=== PATIENT | female | born 1955 | race Caucasian/White ===

== ENCOUNTER → 2018-04-24 | Outpatient (CLI) | payer MEDICARE, OTHER ==
[~2018-04-24] VITALS: Ht 170.2 cm; Wt 72.1 kg
[~2018-04-24] MED LIST: DICY10CA12 PO; MAGN500C15 PO; SUCR1TAB36 PO
== END ==
LOC: PREOP 05:33
PROVIDERS: ATTEND Specialist
DX: Z01.818 Encounter for other preprocedural examination (principal); H25.11 Age-related nuclear cataract, right eye

== ENCOUNTER 2018-04-26 09:55 | Day surgery (SDC) | payer MEDICARE, OTHER ==
[~2018-04-26] VITALS: Ht 170.2 cm; Wt 72.1 kg
[2018-04-26] MEDS ORDERED: VANCOMYCIN/BSS (COMPOUNDED) 10 MG/ML SYR OP ONE (10:00)
[2018-04-26] MEDS ORDERED: POVIDONE (BETADINE) OPHTH SOLN 5% 30 ML OP ONE (10:00)
[2018-04-26] MEDS ORDERED: EPINEPHrine INJECTION 1 MG/ML AMP INJ ONE ×2 (10:00→10:15)
[2018-04-26] MEDS ORDERED: LIDOCAINE PF 1% 2 ML AMP IR PRN (10:00)
[2018-04-26] MEDS ORDERED: TIMOLOL MALEATE 0.5% 5 ML (TIMOPTIC) BTL OU PRN (10:00)
[2018-04-26] MEDS: TETRACAINE 0.5% OPHTH SOLN 4 ML BTL (SINGLE DOSE ONLY) OU PRN ×4 (10:29→10:51)
[2018-04-26 10:36] VITALS: BP 148/86
[2018-04-26] MEDS: PHENYLEPHRINE 10% OPHTH (NEO-SYN) 5 ML BTL OU SCH ×3 (10:40→10:51)
[2018-04-26] MEDS: CYCLOPENTOLATE 1% (CYCLOGYL) 2 ML DROPS OP SCH ×3 (10:40→10:51)
[2018-04-26] MEDS ORDERED: MIDAZOLAM 2 MG/2 ML (VERSED) VIAL ONE (11:01)
--- NOTE | 2018-04-26 11:21 | Ophthalmologist Pre-Op Note ---
Pre-Operative Progress Note H&P Reviewed The H&P was reviewed, patient examined and no changes noted. Date H&P Reviewed: Apr 26, 2018 Time H&P Reviewed: 11:21 Pre-Op Dx Cataract, Right Eye THOMAS QUINTANILLA MD Apr 26, 2018 11:21
--- NOTE | 2018-04-26 11:45 | Ophthalmology Operative Report ---
Cataract removal/placement IOL PREOPERATIVE DIAGNOSIS: Cataract Right Eye POSTOPERATIVE DIAGNOSIS: Cataract Right Eye PROCEDURE: Cataract removal and placement of posterior chamber implant, right eye SURGEON: Moreno Quintanilla ANESTHESIA: Topical with sedation COMPLICATIONS: None ESTIMATED BLOOD LOSS: Minimal DESCRIPTION OF PROCEDURE: After proper informed consent was obtained, the patient, a 63 female, was taken to the Operating Room and the right eye was anesthetized with tetracaine. The right eye was then prepped and draped in the usual manner. A wire lid speculum was placed. A paracentesis was made at the left hand position. Preservative free lidocaine was injected into the anterior chamber followed by viscoelastic. A clear corneal incision was made in the temporal position. A capsulorrhexis was preformed and the central nuclear and cortical material were removed. The posterior capsule was polished and Benedict 18.0 SN6CWS IOL was placed into the capsular bag. The residual viscoelastic was aspirated and balanced saline solution was injected into the anterior chamber. Vancomycin was injected into the anterior chamber. The wound was checked and found to be water tight. The patient tolerated the procedure well without complications. MORENO QUINTANILLA MD Apr 26, 2018 11:45
[2018-04-26 11:50] VITALS: BP 121/73
--- NOTE | 2018-04-26 12:56 | Anesthesia-General Post-Op ---
MAC Patient Condition Mental Status/LOC: Same as Preop Cardiovascular: Satisfactory Nausea/Vomiting: Absent Respiratory: Satisfactory Pain: Controlled Complications: Absent Post Op Complications Complications None Follow Up Care/Instructions Patient Instructions None needed. Anesthesiology Discharge Order Discharge Order Patient is doing well, no complaints, stable vital signs, no apparent adverse anesthesia problems. No complications reported per nursing. KAYLI MUNGUIA CRNA Apr 26, 2018 12:56
== END 2018-04-26 11:50 | disposition home or self-care (01) ==
LOC: SDC 09:55
PROVIDERS: ATTEND Specialist
DX: H26.9 Unspecified cataract (principal)

== ENCOUNTER 2019-05-21 19:26 | Emergency (ER) | payer MEDICARE, OTHER ==
[~2019-05-21] VITALS: Ht 170.2 cm; Wt 73.9 kg
[2019-05-21] MEDS ORDERED: fentaNYL INJECTION 100 MCG/2 ML AMP IVP STA (19:40)
[2019-05-21] MEDS ORDERED: NS IV 1000 ML 1,000 ML IV STA ×3 (19:40→22:57)
[2019-05-21 19:50] LABS: EOSINOPHILS % (AUTO) 0 % (0-10); HEMATOCRIT 33 % (35-52); HEMOGLOBIN 10.1 G/DL (11.5-16.0); LYMPHOCYTES % (AUTO) 12 % (12-44); MEAN CORPUSCULAR HEMOGLOBIN 25 PG (25-34); MEAN CORPUSCULAR HGB CONC 31 G/DL (32-36); MEAN CORPUSCULAR VOLUME 81 FL (80-99); MEAN PLATELET VOLUME 9.7 FL (7.4-10.4); MONOCYTES % (AUTO) 1 % (0-12); NEUTROPHILS % (AUTO) 87 % (42-75); PLATELET COUNT 399 10^3/uL (130-400); RED CELL DISTRIBUTION WIDTH 16.7 % (10.0-14.5); WHITE BLOOD COUNT 11.4 10^3/uL (4.3-11.0)
[2019-05-21 19:51] LABS: BASOPHILS % (AUTO) 0 % (0-10); LYMPHOCYTES # (AUTO) 1.4 X 10^3 (1.0-4.0); MONOCYTES # (AUTO) 0.1 X 10^3 (0.0-1.0); NEUTROPHILS # (AUTO) 9.9 X 10^3 (1.8-7.8)
[2019-05-21] MEDS ORDERED: HYDROmorphone 2 MG/ML VIAL (DILAUDID) IV STA (19:55)
[2019-05-21] MEDS ORDERED: ONDANSETRON 4 MG/2 ML (SDV) Z0FRAN IVP STA (19:55)
--- NOTE | 2019-05-21 20:00 | ED GI ---
General Chief Complaint: Abdominal/GI Problems Stated Complaint: VOMTITING Nursing Triage Note: pt with egd yesterday at [facility], states other than throat being sore this morning she felt fine and went to work, pt states severe abd pain and vomting started 30 minutes ago Sepsis Screen: No Definite Risk Source of Information: Patient, EMS History of Present Illness Date Seen by Provider: May 21, 2019 Time Seen by Provider: 19:41 Initial Comments 64-year-old female presenting with complaints of epigastric and abdominal pain. She has pain going up into her chest and back. She had an EGD and balloon dilation scope done through [facility] on Sunday, May 20. She says that they were concerned about a possible mass in her small intestine but felt that it was rather just scar tissue. They did a double balloon dilation of her small intestine. She was just having some soreness in her throat but throughout the day into this evening she had progressing pain. Suddenly this evening she started having sharp pains with nausea and vomiting. She has more severe pain with movement and palpation. She denies any fever but has had some chills. She is still passing gas. Movement causes increased pain. She has decreased urination as well. Allergies and Home Medications Allergies Coded Allergies: prednisone (Verified Allergy, Severe, BREATHING DIFF, 05/09/18) Sulfa (Sulfonamide Antibiotics) (Verified Allergy, Mild, RASH, 05/09/18) metoclopramide (Verified Allergy, Mild, RASH, 05/09/18) NSAIDS (Non-Steroidal Anti-Inflamma (Verified Allergy, Unknown, 05/21/19) levofloxacin (Verified Allergy, Unknown, 05/21/19) Home Medications Cephalexin 500 Mg Tablet, 500 MG PO QID Prescribed by: PAULA AGUILARRT on 05/21/192328 Dicyclomine HCl 10 Mg Capsule, 10 MG PO PRN, (Reported) Hydrocodone Bit/Acetaminophen 1 Tab Tab, 1 EACH PO Q4-6HR PRN for PAIN-MODERATE Prescribed by: PAULA AGUILARRT on 05/21/192328 Magnesium Oxide 500 Mg Capsule, 1,500 MG PO HS, (Reported) Ondansetron 4 Mg Tab.rapdis, 4 MG PO Q6H PRN for NAUSEA/VOMITING Prescribed by: PAULA OHYART on 9/4/19 2329 Sucralfate 1 Gm Tablet, 1 GM PO PRN, (Reported) Patient Home Medication List Home Medication List Reviewed: Yes Review of Systems Review of Systems Constitutional: No chills, No fever EENTM: No Symptoms Reported Respiratory: No Symptoms Reported Cardiovascular: No Symptoms Reported Gastrointestinal: Abdomen Distended, Abdominal Pain, Nausea, Vomiting Genitourinary: Other (decreased output) Musculoskeletal: other (abdominal pain radiates to back) Skin: no symptoms reported Psychiatric/Neurological: Anxiety Past Ftdytnv-Qzeiml-Ddsrap Hx Past Med/Social Hx: Reviewed Nursing Past Med/Soc Hx Patient Social History Recent Foreign Travel: No Contact w/Someone Who Travel: No Recent Infectious Disease Expo: No Physical Abuse: No Sexual Abuse: No Mistreated: No Fear: No Physical Exam Vital Signs Vital Signs - First Documented 05/21/19 05/21/19 19:34 23:42 Temp 96.9 Pulse 66 Resp 20 B/P (MAP) 117/66 (83) Pulse Ox 98 O2 Delivery Room Air Capillary Refill : Less Than 3 Seconds Height/Weight/BMI Height: 5'7.00" Weight: 163lbs. 0.0oz. 73.165898bz; BMI Method:Actual General Appearance: severe distress HEENT: PERRL/EOMI, other (dry mucous membranes) Neck: non-tender, full range of motion, supple, normal inspection Respiratory: chest non-tender, lungs clear, normal breath sounds Cardiovascular: normal peripheral pulses, regular rate, rhythm, no edema Gastrointestinal: soft, no pulsatile mass, abnormal bowel sounds (hypoactive), guarding, rebound, tenderness (diffusely tender but worse in upper abdomen and epigastric area) Rectal: deferred Extremities: normal range of motion, non-tender, normal capillary refill Neurologic/Psychiatric: alert, oriented x 3, other (anxious) Skin: normal color, warm/dry Focused Exam Lactate Level 05/21/19 22:00: Lactic Acid Level 1.48 Lactic Acid Level Laboratory Tests Test 05/21/19 22:00 Lactic Acid Level 1.48 MMOL/L (0.50-2.00) Progress/Results/Core Measures Results/Orders Lab Results Laboratory Tests Test 05/21/19 19:40 05/21/19 21:25 05/21/19 22:00 Range/Units White Blood Count 11.4 H 4.3-11.0 10^3/uL Red Blood Count 4.03 L 4.35-5.85 10^6/uL Hemoglobin 10.1 L 11.5-16.0 G/DL Hematocrit 33 L 35-52 % Mean Corpuscular Volume 81 80-99 FL Mean Corpuscular Hemoglobin 25 25-34 PG Mean Corpuscular Hemoglobin Concent 31 L 32-36 G/DL Red Cell Distribution Width 16.7 H 10.0-14.5 % Platelet Count 399 130-400 10^3/uL Mean Platelet Volume 9.7 7.4-10.4 FL Neutrophils (%) (Auto) 87 H 42-75 % Lymphocytes (%) (Auto) 12 12-44 % Monocytes (%) (Auto) 1 0-12 % Eosinophils (%) (Auto) 0 0-10 % Basophils (%) (Auto) 0 0-10 % Neutrophils # (Auto) 9.9 H 1.8-7.8 X 10^3 Lymphocytes # (Auto) 1.4 1.0-4.0 X 10^3 Monocytes # (Auto) 0.1 0.0-1.0 X 10^3 Eosinophils # (Auto) 0.0 0.0-0.3 10^3/uL Basophils # (Auto) 0.0 0.0-0.1 10^3/uL Neutrophils % (Manual) 80 % Lymphocytes % (Manual) 9 % Monocytes % (Manual) 1 % Band Neutrophils 10 % Hypochromasia 2+ Sodium Level 140 135-145 MMOL/L Potassium Level 3.3 L 3.6-5.0 MMOL/L Chloride Level 101 98-107 MMOL/L Carbon Dioxide Level 24 21-32 MMOL/L Anion Gap 15 H 5-14 MMOL/L Blood Urea Nitrogen 20 H 7-18 MG/DL Creatinine 0.97 0.60-1.30 MG/DL Estimat Glomerular Filtration Rate 57 BUN/Creatinine Ratio 21 Glucose Level 161 H 70-105 MG/DL Calcium Level 8.9 8.5-10.1 MG/DL Corrected Calcium 8.9 8.5-10.1 MG/DL Magnesium Level 1.9 1.6-2.4 MG/DL Total Bilirubin 0.3 0.1-1.0 MG/DL Aspartate Amino Transf (AST/SGOT) 40 H 5-34 U/L Alanine Aminotransferase (ALT/SGPT) 21 0-55 U/L Alkaline Phosphatase 84 40-136 U/L Total Protein 7.0 6.4-8.2 GM/DL Albumin 4.0 3.2-4.5 GM/DL Lipase 30 8-78 U/L Urine Color PALE YELLOW Urine Clarity CLEAR Urine pH 5.5 5-9 Urine Specific [place] <=1.005 1.016-1.022 Urine Protein NEGATIVE NEGATIVE Urine Glucose (UA) NEGATIVE NEGATIVE Urine Ketones NEGATIVE NEGATIVE Urine Nitrite NEGATIVE NEGATIVE Urine Bilirubin NEGATIVE NEGATIVE Urine Urobilinogen 0.2 NORMAL MG/DL Urine Leukocyte Esterase 1+ H NEGATIVE Urine RBC (Auto) NEGATIVE NEGATIVE Urine RBC NONE /HPF Urine WBC 25-50 H /HPF Urine Squamous Epithelial Cells 5-10 /HPF Urine Crystals NONE /LPF Urine Bacteria TRACE /HPF Urine Casts NONE /LPF Urine Mucus NEGATIVE /LPF Urine Culture Indicated YES Lactic Acid Level 1.48 0.50-2.00 MMOL/L My Orders Orders - PAULA DORAN MD Comprehensive Metabolic Panel (05/21/19 19:35) Lipase (05/21/19 19:35) Ua Culture If Indicated (05/21/19 19:35) Ed Iv/Invasive Line Start (05/21/19 19:35) Cbc With Automated Diff (05/21/19 19:35) Fentanyl Injection (Sublimaze Injection (05/21/19 19:40) Ns Iv 1000 Ml (Sodium Chloride 0.9%) (05/21/19 19:40) Manual Differential (05/21/19 19:40) Hydromorphone Injection (Dilaudid Inject (05/21/19 19:55) Ondansetron Injection (Zofran Injectio (05/21/19 19:55) Ct Chest/Abdomen/Pelvis W (05/21/19 19:56) Iohexol Injection (Omnipaque 350 Mg/Ml 1 (05/21/19 20:15) Received Contrast (Hold Metformin- Contr (05/21/19 20:15) Ns (Ivpb) (Sodium Chloride 0.9% Ivpb Bag (05/21/19 20:15) Sodium Chloride Flush (Catheter Flush Sy (05/21/19 20:15) Magnesium (05/21/19 20:38) Blood Culture (05/21/19 21:32) Lactic Acid Analyzer (05/21/19 21:32) Acetaminophen Tablet (Tylenol Tablet) (05/21/19 21:33) Ns Iv 1000 Ml (Sodium Chloride 0.9%) (05/21/19 21:52) Urine Culture (05/21/19 21:25) Ceftriaxone For Iv Use (Rocephin For I (05/21/19 22:57) Ns Iv 1000 Ml (Sodium Chloride 0.9%) (05/21/19 22:57) Rx-Ondansetron Po (Rx-Zofran Po) (05/21/19 23:00) Rx-Hydrocodone/Apap 5-325 Mg (Rx-Vicodin (05/21/19 23:00) Medications Given in ED Current Medications Medications Dose Ordered Sig/Eloy Route Start Time Stop Time Status Last Admin Dose Admin Iohexol 100 ml ONCE ONCE IV 05/21/19 20:15 05/21/19 20:16 DC 05/21/19 20:26 100 ML Sodium Chloride 10 ml NEEDED PRN IV 05/21/19 20:15 05/21/19 23:42 DC 05/21/19 20:26 10 ML Sodium Chloride 100 ml ONCE ONCE IV 05/21/19 20:15 05/21/19 20:16 DC 05/21/19 20:26 40 ML Vital Signs/I&O 05/21/19 05/21/19 05/21/19 19:34 21:25 23:42 Temp 96.9 101.9 99.8 Pulse 66 117 Resp 20 15 B/P (MAP) 117/66 (83) 109/58 (75) Pulse Ox 98 91 O2 Delivery Room Air 05/22/19 00:00 Intake Total 3000 ml Balance 3000 ml Blood Pressure Mean: 83 Progress Progress Note #1: Progress Note give fentanyl for pain, ivf for hydration, check labs so can see what her Cr and GFR are so can obtain CT scan of chest/abdomen/pelvis to see if she has perforation or what might be causing her severe pain and n/v. Progress Note #2: Progress Note Not having much improvement with fentanyl so will try Dilaudid 0.5 mg IV and repeat Zofran to see if that helps keep her from having nausea from the narcotics while pending imaging and labs. Progress Note #3: Progress Note Labs show anemia with Hgb at 10.1, mild elevation of WBC at 11.4. Her Chemistry does not show signs of pancreatitis and her electrolytes appear stable with no acute significant abnormalities on renal or hepatic testing. Awaiting CT scan imaging. Progress Note #4: Progress Note Per radiology her CT scan does not show perforation but she does have signs of possible ileus. She is still having severe pain. Will check with [facility] about her symptoms Progress Note #5: Progress Note Discussed with the on-call GI doctor Dr. Lomax at [facility]. He felt the patient could be followed as outpatient since her scan was read out as negative by radiologist and she has improved pain. As long as the pt was comfortable with that and taking po. She could be treated for her UTI and have her take oral fluids. Have her follow-up through primary liquid diet. Off work until Sunday.. Hydrocodone for severe pain. Counseled to use this sparingly so that she doesn't perpetuate the ileus. Patient chose to try things at home. She wanted to stay and be admitted also have advised her that this would likely be best since she was tachycardic. She was given 1 more liter fluids and at first dose of antibiotic She was counseled on follow-up and return precautions. Diagnostic Imaging Diagonstic Imaging: CT Plain Films/CT/US/NM/MRI: chest, abdomen, pelvis Comments NAME: [facility]IN [facility] REC#: [id number] PT STATUS: REG ER : 1955 PHYSICIAN: PAULA DORAN MD ADMIT DATE: 05/21/19/ER FS Draft Date of Exam:05/21/19 CT CHEST/ABDOMEN/PELVIS W PROCEDURE: CT chest, abdomen and pelvis with contrast. TECHNIQUE: Multiple contiguous axial images were obtained through the chest, abdomen, and pelvis after the administration of intravenous contrast. Auto Exposure Controls were utilized during the CT exam to meet ALARA standards for radiation dose reduction. INDICATION: Severe abdominal pain and vomiting. Recent EGD. CT chest: The lungs are clear. There is no effusion or pneumothorax. There is no pneumomediastinum. There is no mediastinal mass or hemorrhage. There is no acute bony abnormality. CT abdomen/pelvis: The liver is normal. The gallbladder is not seen and assumed is absent. There is no abnormality of the pancreas seen. The spleen and adrenals are normal. The kidneys, ureters and bladder are normal. There are multiple air and fluid-filled loops of bowel which are upper normal. This may be related to mild ileus. No obstruction is evident at this time. There is air and fecal material in a nondilated colon. There is no free intraperitoneal air or fluid. Sutures are seen at the GE junction. No intramural or free intraperitoneal air is seen at this site or elsewhere. IMPRESSION: Probable ileus with no other acute abnormality seen. Dictated on workstation # [id number] Dict: 05/21/192049 Trans: 05/21/192054 PJE [id number] Interpreted by: MARIAM GREENE MD Electronically signed by: Departure Impression Primary Impression: Ileus following gastrointestinal surgery Additional Impressions: Cystitis without hematuria Bilious vomiting with nausea Diffuse abdominal pain Disposition: HOME, SELF-CARE Condition: Stable Departure-Patient Inst. Decision time for Depature: 23:25 Referrals: NO,LOCAL PHYSICIAN (PCP) Primary Care Physician Patient Instructions: Acute Abdomen (Belly Pain), Adult (DC), Nausea and Vomiting, Adult (DC), Postoperative Ileus (DC), Urinary Tract Infection, Adult (DC) Add. Discharge Instructions: Follow-up clear liquid diet for the next 24-36 hours. For severe pain U could try taking the hydrocodone. Use the dissolving Zofran tablets to help with nausea. Check back with your GI doctor from [place] tomorrow about urinary symptoms. If you have not heard from them you could give them a call tomorrow. Make sure to take the antibiotics until gone All discharge instructions reviewed with patient and/or family. Voiced understanding. Scripts Hydrocodone Bit/Acetaminophen (Hydrocodone/Acetaminophen 5/325mg Tablet) 1 Tab Tab 1 EACH PO Q4-6HR PRN for PAIN-MODERATE MDD 10 for 3 Days, #16 TAB 0 Refills Prov: PAULA DORAN MD 05/21/19 Ondansetron (Ondansetron Odt) 4 Mg Tab.rapdis 4 MG PO Q6H PRN for NAUSEA/VOMITING for 2 Days, #8 TAB 0 Refills Prov: PAULA DORAN MD 05/21/19 Cephalexin (Cephalexin) 500 Mg Tablet 500 MG PO QID for uti for 7 Days, #28 TAB 0 Refills Prov: ENYART,PAULA E MD 05/21/19 Work/School Note: Work Release Form Date Seen in the Emergency Department: May 21, 2019 Return to Work: May 26, 2019 Restrictions: Return-No Vomiting(24hrs) PAULA DORAN MD May 21, 2019 20:00
[2019-05-21 20:10] LABS: CREATININE SERUM 0.97 MG/DL (0.60-1.30); POTASSIUM 3.3 MMOL/L (3.6-5.0)
[2019-05-21 20:11] LABS: BILIRUBIN,TOTAL 0.3 MG/DL (0.1-1.0); CALCIUM 8.9 MG/DL (8.5-10.1)
[2019-05-21] MEDS ORDERED: NS 100 ML (IVPB) BAG IV ONE (20:15)
[2019-05-21] MEDS ORDERED: IOHEXOL 350 MG/ML 100 ML (OMNIPAQUE 350) VIAL IV ONE (20:15)
[2019-05-21] MEDS ORDERED: CATHETER FLUSH 10 ML SYR IV PRN (20:15)
[2019-05-21] MEDS ORDERED: HOLD METFORMIN - RECEIVED CONTRAST 20 ML VIAL IV SCH (20:15)
[2019-05-21 20:19] LABS: BAND NEUTROPHILS 10 %; HYPOCHROMASIA 2+; LYMPHOCYTES % (MANUAL) 9 %; MONOCYTES % (MANUAL) 1 %; NEUTROPHILS % (MANUAL) 80 %
--- NOTE | 2019-05-21 20:56 | Diagnostic Imaging Report ---
PROCEDURE: CT chest, abdomen and pelvis with contrast. TECHNIQUE: Multiple contiguous axial images were obtained through the chest, abdomen, and pelvis after the administration of intravenous contrast. Auto Exposure Controls were utilized during the CT exam to meet ALARA standards for radiation dose reduction. INDICATION: Severe abdominal pain and vomiting. Recent EGD. CT chest: The lungs are clear. There is no effusion or pneumothorax. There is no pneumomediastinum. There is no mediastinal mass or hemorrhage. There is no acute bony abnormality. CT abdomen/pelvis: The liver is normal. The gallbladder is not seen and assumed is absent. There is no abnormality of the pancreas seen. The spleen and adrenals are normal. The kidneys, ureters and bladder are normal. There are multiple air and fluid-filled loops of bowel which are upper normal. This may be related to mild ileus. No obstruction is evident at this time. There is air and fecal material in a nondilated colon. There is no free intraperitoneal air or fluid. Sutures are seen at the GE junction. No intramural or free intraperitoneal air is seen at this site or elsewhere. IMPRESSION: Probable ileus with no other acute abnormality seen. Dictated by: Dictated on workstation # [id number]
[2019-05-21] MEDS ORDERED: ACETAMINOPHEN 500 MG TAB (TYLENOL) PO STA (21:33)
[2019-05-21 22:05] LABS: BILIRUBIN,URINE NEGATIVE (NEGATIVE); CLARITY,URINE CLEAR; COLOR,URINE PALE YELLOW; GLUCOSE, URINE (UA) NEGATIVE (NEGATIVE); KETONES,URINE NEGATIVE (NEGATIVE); NITRITE,URINE NEGATIVE (NEGATIVE); PH,URINE 5.5 (5-9); PROTEIN,URINE NEGATIVE (NEGATIVE); UROBILINOGEN,URINE 0.2 MG/DL (NORMAL)
[2019-05-21 22:06] LABS: BACTERIA,URINE TRACE /HPF; LEUKOCYTE ESTERASE ,URINE 1+ (NEGATIVE); WBC,URINE 25-50 /HPF
[2019-05-21] MEDS ORDERED: cefTRIAXone FOR IV USE 1,000 MG in WATER (STERILE) FOR INJECTION 10 ML IV STA (22:57)
[2019-05-21] MEDS ORDERED: RX-ONDANSETRON 4 MG ODT (ZOFRAN) PPK #4 PO PRN (23:00)
[2019-05-21] MEDS ORDERED: RX-HYDROCODONE/APAP 5/325 MG #4 TAB PK PO PRN (23:00)
[2019-05-21] MEDS ORDERED: CEPH500T PO (23:29)
[2019-05-21] MEDS ORDERED: ACHD5005 PO (23:29)
[2019-05-21] MEDS ORDERED: ONDA4TAB11 PO (23:29)
[2019-05-21 23:42] VITALS: BP 109/58
== END 2019-05-21 23:41 | disposition home or self-care (01) ==
LOC: EDUNIT# 19:26 → ER FS 19:28
DX: K91.89 Other postprocedural complications and disorders of digestive system (principal); N30.90 Cystitis, unspecified without hematuria; R11.14 Bilious vomiting; R11.0 Nausea; Z88.8 Allergy status to other drugs, medicaments and biological substances; Z88.2 Allergy status to sulfonamides; Z88.1 Allergy status to other antibiotic agents; Z88.6 Allergy status to analgesic agent
CPT/HCPCS: 36415; 71260; 74177; 80053; 81000; 83605; 83690; 83735; 85007; 85027; 87040; 87077; 87088; 96361; 96365; 96375

== ENCOUNTER 2019-06-26 10:05 | Emergency (ER) | payer MEDICARE, OTHER ==
[~2019-06-26] VITALS: Ht 170 cm; Wt 78.0 kg
[~2019-06-26 10:05] MED LIST changes: +ACHD5005 PO; +CEPH500T PO; +ONDA4TAB11 PO
--- NOTE | 2019-06-26 10:26 | ED Dyspnea ---
General Chief Complaint: Chest Pain Stated Complaint: SOB; DIZZINESS; CHEST PRESSURE Source of Information: Patient Exam Limitations: No Limitations History of Present Illness Date Seen by Provider: Jun 26, 2019 Time Seen by Provider: 10:15 Initial Comments The patient is a pleasant 64-year-old female who presents for evaluation of sh ortness of breath and chest discomfort. She states that her symptoms began yesterday evening. She states that she has had similar shortness of breath in the past which was caused by anemia. She does report some dark stools lately and states that she has a history of GI bleeding. She has not noticed any bright red blood per rectum. She does mention that she takes breathing treatments at home which were not helping and when asked why she is prescribed them she states because she had mold exposure in the past and denies COPD or asthma. She denies any history of cardiac problems. She is alert and oriented 4, calm, and appears to be in no distress. She reports some mild nausea but no vomiting, f/c, diaphoresis, abdominal or back pain, rectal pain, urinary complaints, palpitations, or syncope. She does report some fatigue. Timing/Duration: Other (yesterday evening) Severity: Moderate Prior Episodes/Possible Cause: Occasional Episodes (usually related to anemia) Modifying Factors: Improves With Activity, Improves With Rest (helps) Associated Symptoms: Chest Pain, Weakness Allergies and Home Medications Allergies Coded Allergies: prednisone (Verified Allergy, Severe, BREATHING DIFF, 05/09/18) Sulfa (Sulfonamide Antibiotics) (Verified Allergy, Mild, RASH, 05/09/18) metoclopramide (Verified Allergy, Mild, RASH, 05/09/18) NSAIDS (Non-Steroidal Anti-Inflamma (Verified Allergy, Unknown, 05/21/19) atorvastatin (Verified Allergy, Unknown, rash, 06/26/19) levofloxacin (Verified Allergy, Unknown, 05/21/19) morphine (Verified Allergy, Unknown, rash, swelling , 06/26/19) nitrofurantoin (Verified Allergy, Unknown, rash, 06/26/19) Home Medications Cephalexin 500 Mg Tablet, 500 MG PO QID Prescribed by: PAULA DORAN on 05/21/19 0876 Dicyclomine HCl 10 Mg Capsule, 10 MG PO PRN, (Reported) Hydrocodone Bit/Acetaminophen 1 Tab Tab, 1 EACH PO Q4-6HR PRN for PAIN-MODERATE Prescribed by: PAULA AGUILARRT on 05/21/192328 Magnesium Oxide 500 Mg Capsule, 1,500 MG PO HS, (Reported) Ondansetron 4 Mg Tab.rapdis, 4 MG PO Q6H PRN for NAUSEA/VOMITING Prescribed by: PAULA AGUILARRT on 05/21/192328 Sucralfate 1 Gm Tablet, 1 GM PO PRN, (Reported) Patient Home Medication List Home Medication List Reviewed: Yes Review of Systems Review of Systems Constitutional: no symptoms reported EENTM: no symptoms reported Respiratory: dyspnea on exertion, short of breath Cardiovascular: chest pain Gastrointestinal: other (dark stools) Genitourinary: no symptoms reported Musculoskeletal: no symptoms reported Skin: no symptoms reported Psychiatric/Neurological: No Symptoms Reported Endocrine: No Symptoms Reported Hematologic/Lymphatic: No Symptoms Reported All Other Systems Reviewed Negative Unless Noted: Yes Past Jcksmxq-Ceuldh-Zwrcdj Hx Past Med/Social Hx: Reviewed Nursing Past Med/Soc Hx Patient Social History 2nd Hand Smoke Exposure: No Recent Foreign Travel: No Recent Hopitalizations: No Seasonal Allergies Seasonal Allergies: No Past Medical History Surgeries: Yes Abdominal Respiratory: No Cardiac: No Neurological: No Genitourinary: No Gastrointestinal: Yes Gastroesophageal Reflux, Ulcer Musculoskeletal: No Endocrine: No HEENT: No Cancer: No Psychosocial: No Integumentary: No Blood Disorders: No Physical Exam Vital Signs Vital Signs - First Documented 06/26/19 10:25 Temp 37.0 Pulse 75 Resp 18 B/P (MAP) 161/75 (103) Pulse Ox 100 O2 Delivery Room Air Capillary Refill : Height, Weight, BMI Height: 5'7.00" Weight: 163lbs. 0.0oz. 73.134183xs; BMI Method:Actual General Appearance: No Apparent Distress, WD/WN HEENT: PERRL/EOMI, Pharynx Normal Neck: Full Range of Motion, Non Tender, Supple Respiratory: Chest Non Tender, Lungs Clear, Normal Breath Sounds, No Accessory Muscle Use, No Respiratory Distress Cardiovascular: Regular Rate, Rhythm, No Edema, No Murmur Gastrointestinal: Normal Bowel Sounds, No Pulsatile Mass, Non Tender, Soft Extremity: Normal Capillary Refill, Normal Inspection, Normal Range of Motion, Non Tender Neurologic/Psychiatric: Alert, Oriented x3, No Motor/Sensory Deficits, Normal Mood/Affect Skin: Normal Color, Warm/Dry Progress/Results/Core Measures Results/Orders Lab Results Laboratory Tests Test 06/26/19 10:20 Range/Units White Blood Count 12.3 H 4.3-11.0 10^3/uL Red Blood Count 4.47 4.35-5.85 10^6/uL Hemoglobin 11.1 L 11.5-16.0 G/DL Hematocrit 35 35-52 % Mean Corpuscular Volume 79 L 80-99 FL Mean Corpuscular Hemoglobin 25 25-34 PG Mean Corpuscular Hemoglobin Concent 32 32-36 G/DL Red Cell Distribution Width 17.2 H 10.0-14.5 % Platelet Count 407 H 130-400 10^3/uL Mean Platelet Volume 9.2 7.4-10.4 FL Neutrophils (%) (Auto) 67 42-75 % Lymphocytes (%) (Auto) 22 12-44 % Monocytes (%) (Auto) 7 0-12 % Eosinophils (%) (Auto) 2 0-10 % Basophils (%) (Auto) 1 0-10 % Neutrophils # (Auto) 8.2 H 1.8-7.8 X 10^3 Lymphocytes # (Auto) 2.7 1.0-4.0 X 10^3 Monocytes # (Auto) 0.9 0.0-1.0 X 10^3 Eosinophils # (Auto) 0.3 0.0-0.3 10^3/uL Basophils # (Auto) 0.1 0.0-0.1 10^3/uL Prothrombin Time 14.2 12.2-14.7 SEC INR Comment 1.1 0.8-1.4 Activated Partial Thromboplast Time 27 24-35 SEC D-Dimer 0.56 H 0.00-0.49 UG/ML Sodium Level 140 135-145 MMOL/L Potassium Level 3.6 3.6-5.0 MMOL/L Chloride Level 106 98-107 MMOL/L Carbon Dioxide Level 22 21-32 MMOL/L Anion Gap 12 5-14 MMOL/L Blood Urea Nitrogen 15 7-18 MG/DL Creatinine 0.83 0.60-1.30 MG/DL Estimat Glomerular Filtration Rate > 60 BUN/Creatinine Ratio 18 Glucose Level 101 70-105 MG/DL Calcium Level 8.8 8.5-10.1 MG/DL Corrected Calcium 9.0 8.5-10.1 MG/DL Magnesium Level 2.2 1.6-2.4 MG/DL Total Bilirubin 0.3 0.1-1.0 MG/DL Aspartate Amino Transf (AST/SGOT) 21 5-34 U/L Alanine Aminotransferase (ALT/SGPT) 13 0-55 U/L Alkaline Phosphatase 85 40-136 U/L Troponin I 0.30 <0.30 NG/ML Pro-B-Type Natriuretic Peptide 417.1 H <75.0 PG/ML Total Protein 6.8 6.4-8.2 GM/DL Albumin 3.8 3.2-4.5 GM/DL My Orders Orders - MARIAM SULLIVAN DO Cbc With Automated Diff (06/26/19 10:18) Magnesium (06/26/19 10:18) Chest 1 View Ap/Pa Only (06/26/19 10:18) Ekg Tracing (06/26/19 10:18) Comprehensive Metabolic Panel (06/26/19 10:18) Protime With Inr (06/26/19 10:18) Partial Thromboplastin Time (06/26/19 10:18) O2 (06/26/19 10:18) Monitor-Rhythm Ecg Trace Only (06/26/19 10:18) Ed Iv/Invasive Line Start (06/26/19 10:18) Troponin I Fs (06/26/19 10:18) Probnp Fs (06/26/19 10:18) Albuterol/Ipra Inhalation Soln (Duoneb I (06/26/19 11:45) Svn Small Volume Nebulizer (06/26/19 11:35) Methylprednisolone Sod Succ (Solu-Medrol (06/26/19 11:45) Ns Iv 1000 Ml (Sodium Chloride 0.9%) (06/26/19 11:45) Fibrin Degradation Products (06/26/19 12:28) Ct Angio Chest W (06/26/19 13:40) Iohexol Injection (Omnipaque 350 Mg/Ml 1 (06/26/19 13:45) Received Contrast (Hold Metformin- Contr (06/26/19 13:45) Sodium Chloride Flush (Catheter Flush Sy (06/26/19 13:45) Ns (Ivpb) (Sodium Chloride 0.9% Ivpb Bag (06/26/19 13:45) Medications Given in ED Current Medications Medications Dose Ordered Sig/Eloy Route Start Time Stop Time Status Last Admin Dose Admin Albuterol/ Ipratropium 3 ml ONCE ONCE INH 06/26/19 11:45 06/26/19 11:46 DC 06/26/19 11:51 3 ML Iohexol 125 ml ONCE ONCE IV 06/26/19 13:45 06/26/19 13:46 DC 06/26/19 14:03 125 ML Methylprednisolone Sodium Succinate 125 mg ONCE ONCE IVP 06/26/19 11:45 06/26/19 11:46 DC 06/26/19 11:51 125 MG Sodium Chloride 10 ml NEEDED PRN IV 06/26/19 13:45 06/26/19 14:03 10 ML Sodium Chloride 100 ml ONCE ONCE IV 06/26/19 13:45 06/26/19 13:46 DC 06/26/19 14:03 80 ML Vital Signs/I&O 06/26/19 10:25 Temp 37.0 Pulse 75 Resp 18 B/P (MAP) 161/75 (103) Pulse Ox 100 O2 Delivery Room Air Progress Progress Note : Progress Note @1135 - patient declines rectal examination. Her hemoglobin is higher than it was a month ago so a significant GI bleed is unlikely. She states that she has been having somewhat dark stools on and off over the last month but that they are getting better. She states that she was recently spraying paint on Sunday at her home without a mask and believes this could've triggered her shortness of breath. Patient will be given a DuoNeb and Solu-Medrol. She states that she has an anaphylactic reaction to prednisone but that she has tolerated Solu-Medrol several times in the past multiple times. @1238 - Pt continues to saturate 100% on room air. She continues to state that she is short of breath. A d-dimer has been ordered. She does not appear to be in any respiratory distress. @1432 - CT angiogram is unremarkable. The patient has no new complaints and is asking to go home. Workup today fails reveal any emergent pathology in the patient stable for discharge home at this time. EKG : Comment EKG@1011 - Normal sinus rhythm, rate of 71, normal axis, no acute ischemic findings noted, no STEMI, reviewed and interpreted by myself Diagnostic Imaging Comments [facility], [place] NAME: RAMIN [facility] REC#: [id number] PT STATUS: REG ER : 1955 PHYSICIAN: MARIAM SULLIVAN DO ADMIT DATE: 06/26/19/ER FS Draft Date of Exam:06/26/19 CT ANGIO CHEST W PROCEDURE: CT angiography of the chest with contrast. TECHNIQUE: Multiple contiguous axial images were obtained through the chest after uneventful bolus administration of intravenous contrast. 3D reconstructed CTA MIP acquisitions were also performed. Auto Exposure Controls were utilized during the CT exam to meet ALARA standards for radiation dose reduction. INDICATION: Cough and elevated D-dimer. Correlation is made with prior chest CT from 05/21/2019. Evaluation of the pulmonary arterial system is without thromboembolism. No filling defects are seen within central, lobar or segmental branches. Thoracic aorta is normal caliber. There is no dissection. No pericardial or pleural fluid is identified. Tiny subpleural nodule left upper lobe laterally, image 22 is stable. Additional tiny subpleural nodules right upper lobe are noted. No mass or infiltrate is seen. Upper abdomen demonstrates postsurgical changes to the stomach. IMPRESSION: No evidence of pulmonary embolism or thoracic aortic dissection. Dictated on workstation # [id number] Dict: 06/26/19 1415 Trans: 06/26/19 1420 [facility] [id number] Interpreted by: YORDAN PEREZ MD Electronically signed by: Departure Impression Primary Impression: Dyspnea Disposition: 01 HOME, SELF-CARE Condition: Stable Departure-Patient Inst. Referrals: VIRGILIO ALONZO MD (PCP) Primary Care Physician Patient Instructions: Pneumonitis, Shortness of Breath (Dyspnea) Add. Discharge Instructions: Take the medication as prescribed. Follow-up with your doctor in the next 1-2 days. Return to the emergency Department immediately for new or worsening symptoms. Scripts Benzonatate (TESSALON PERLES) 100 Mg Capsule 100 MG PO Q6H PRN for COUGH, #20 CAP Prov: MARIAM SULLIVAN DO 06/26/19 Acetaminophen with Codeine (Tylenol with Codeine #3 Tablet) 1 Each Tablet 1 EACH PO Q6H PRN for COUGH for 7 Days, #15 TAB Prov: MARIAM SULLIVAN DO 06/26/19 MARIAM SULLIVAN DO Jun 26, 2019 10:26
[2019-06-26 10:34] LABS: WHITE BLOOD COUNT 12.3 10^3/uL (4.3-11.0)
[2019-06-26 10:35] LABS: BASOPHILS # (AUTO) 0.1 10^3/uL (0.0-0.1); BASOPHILS % (AUTO) 1 % (0-10); EOSINOPHILS # (AUTO) 0.3 10^3/uL (0.0-0.3); EOSINOPHILS % (AUTO) 2 % (0-10); HEMATOCRIT 35 % (35-52); HEMOGLOBIN 11.1 G/DL (11.5-16.0); LYMPHOCYTES # (AUTO) 2.7 X 10^3 (1.0-4.0); LYMPHOCYTES % (AUTO) 22 % (12-44); MEAN CORPUSCULAR HEMOGLOBIN 25 PG (25-34); MEAN CORPUSCULAR HGB CONC 32 G/DL (32-36); MEAN CORPUSCULAR VOLUME 79 FL (80-99); MEAN PLATELET VOLUME 9.2 FL (7.4-10.4); MONOCYTES # (AUTO) 0.9 X 10^3 (0.0-1.0); MONOCYTES % (AUTO) 7 % (0-12); NEUTROPHILS # (AUTO) 8.2 X 10^3 (1.8-7.8); NEUTROPHILS % (AUTO) 67 % (42-75); PLATELET COUNT 407 10^3/uL (130-400); RED CELL DISTRIBUTION WIDTH 17.2 % (10.0-14.5)
[2019-06-26 10:43] LABS: INR 1.1 (0.8-1.4); PROTHROMBIN TIME PATIENT 14.2 SEC (12.2-14.7)
--- NOTE | 2019-06-26 11:02 | Diagnostic Imaging Report ---
INDICATION: Cough. FINDINGS: The heart size, mediastinal configuration, and pulmonary vascularity are within normal limits. There is no pleural effusion, pneumothorax, or pneumonia. The osseous structures are unremarkable. IMPRESSION: No acute cardiopulmonary abnormality. Dictated by: Dictated on workstation # [id number]
[2019-06-26 11:04] LABS: CARBON DIOXIDE 22 MMOL/L (21-32); CHLORIDE 106 MMOL/L (98-107); POTASSIUM 3.6 MMOL/L (3.6-5.0); SODIUM 140 MMOL/L (135-145)
[2019-06-26 11:05] LABS: ALANINE AMINOTRANSFERASE 13 U/L (0-55); ALBUMIN 3.8 GM/DL (3.2-4.5); ALKALINE PHOSPHATASE 85 U/L (40-136); BILIRUBIN,TOTAL 0.3 MG/DL (0.1-1.0); BUN/CREATININE RATIO 18; CALCIUM 8.8 MG/DL (8.5-10.1); CREATININE SERUM 0.83 MG/DL (0.60-1.30); GFR ESTIMATED > 60; GLUCOSE 101 MG/DL (70-105); MAGNESIUM 2.2 MG/DL (1.6-2.4); TOTAL PROTEIN 6.8 GM/DL (6.4-8.2)
[2019-06-26] MEDS ORDERED: RT-ALBUTEROL/IPRATROPIUM 3 ML (DUONEB) VIAL INH ONE (11:45)
[2019-06-26] MEDS ORDERED: NS IV 1000 ML 1,000 ML IV SCH (11:45)
[2019-06-26] MEDS ORDERED: methylPREDNISolone 125 MG (Solu-MEDROL) VIAL IVP ONE (11:45)
[2019-06-26] MEDS ORDERED: IOHEXOL 350 MG/ML 150 ML (OMNIPAQUE 350) VIAL IV ONE (13:45)
[2019-06-26] MEDS ORDERED: NS 100 ML (IVPB) BAG IV ONE (13:45)
[2019-06-26] MEDS ORDERED: CATHETER FLUSH 10 ML SYR IV PRN (13:45)
[2019-06-26] MEDS ORDERED: HOLD METFORMIN - RECEIVED CONTRAST 20 ML VIAL IV SCH (13:45)
--- NOTE | 2019-06-26 14:20 | Diagnostic Imaging Report ---
PROCEDURE: CT angiography of the chest with contrast. TECHNIQUE: Multiple contiguous axial images were obtained through the chest after uneventful bolus administration of intravenous contrast. 3D reconstructed CTA MIP acquisitions were also performed. Auto Exposure Controls were utilized during the CT exam to meet ALARA standards for radiation dose reduction. INDICATION: Cough and elevated D-dimer. Correlation is made with prior chest CT from 05/21/2019. Evaluation of the pulmonary arterial system is without thromboembolism. No filling defects are seen within central, lobar or segmental branches. Thoracic aorta is normal caliber. There is no dissection. No pericardial or pleural fluid is identified. Tiny subpleural nodule left upper lobe laterally, image 22 is stable. Additional tiny subpleural nodules right upper lobe are noted. No mass or infiltrate is seen. Upper abdomen demonstrates postsurgical changes to the stomach. IMPRESSION: No evidence of pulmonary embolism or thoracic aortic dissection. Dictated by: Dictated on workstation # [id number]
[2019-06-26] MEDS ORDERED: ACET-789 PO (14:32)
[2019-06-26] MEDS ORDERED: BENZ100C18 PO (14:32)
[2019-06-26 14:58] VITALS: BP 132/77
== END 2019-06-26 14:37 | disposition home or self-care (01) ==
LOC: EDUNIT# 10:05 → ER FS 10:07
DX: R06.00 Dyspnea, unspecified (principal); K21.9 Gastro-esophageal reflux disease without esophagitis; Z88.8 Allergy status to other drugs, medicaments and biological substances; Z88.2 Allergy status to sulfonamides; Z88.1 Allergy status to other antibiotic agents; Z88.5 Allergy status to narcotic agent; Z88.6 Allergy status to analgesic agent
CPT/HCPCS: 36415; 71045; 71275; 80053; 83735; 83880; 84484; 85025; 85379; 85610; 85730; 93005; 93041; 94640; 96374

== ENCOUNTER 2019-12-05 09:24 | Emergency (ER) | payer MEDICARE, OTHER ==
[~2019-12-05] VITALS: Ht 170 cm; Wt 72.7 kg
[~2019-12-05 09:24] MED LIST changes: +ACET-789 PO; +BENZ100C18 PO
--- NOTE | 2019-12-05 10:04 | NUR ---
PT STATES SHE FEELS SOA ESPECIALLY IF SHE LAYS DOWN.
[2019-12-05] MEDS ORDERED: ALBUTEROL (10:11)
[2019-12-05] MEDS ORDERED: CYCL5TAB (10:11)
[2019-12-05] MEDS ORDERED: PANT40TA2 PO (10:11)
[2019-12-05] MEDS ORDERED: BENTYL (10:11)
[2019-12-05 10:15] LABS: BASOPHILS # (AUTO) 0.1 10^3/uL (0.0-0.1); BASOPHILS % (AUTO) 1 % (0-10); EOSINOPHILS # (AUTO) 0.2 10^3/uL (0.0-0.3); EOSINOPHILS % (AUTO) 3 % (0-10); HEMATOCRIT 34 % (35-52); HEMOGLOBIN 10.6 G/DL (11.5-16.0); LYMPHOCYTES # (AUTO) 2.6 X 10^3 (1.0-4.0); LYMPHOCYTES % (AUTO) 37 % (12-44); MEAN CORPUSCULAR HEMOGLOBIN 25 PG (25-34); MEAN CORPUSCULAR HGB CONC 31 G/DL (32-36); MEAN CORPUSCULAR VOLUME 79 FL (80-99); MEAN PLATELET VOLUME 9.3 FL (7.4-10.4); MONOCYTES # (AUTO) 0.5 X 10^3 (0.0-1.0); MONOCYTES % (AUTO) 8 % (0-12); NEUTROPHILS # (AUTO) 3.6 X 10^3 (1.8-7.8); NEUTROPHILS % (AUTO) 51 % (42-75); PLATELET COUNT 417 10^3/uL (130-400); RED CELL DISTRIBUTION WIDTH 17.6 % (10.0-14.5)
--- NOTE | 2019-12-05 10:20 | ED Respiratory ---
General Chief Complaint: Respiratory Problems Stated Complaint: COUGH | POSSIBLE PNEUMONIA | POSSIBLE FEVER Nursing Triage Note: PT ARRIVED VIA AMB TO ROOM THRU [facility] ROOM ESCORTED BY JERAD. SINCE Oct SHE HAS BEEN TREATED FOR PNEMONIA. JUST FINISHED LEVAQUIN. STARTED RUNNING A FEVER. PT COMPLAINS OF SORETHROAT AND COUGH. PT IS COVID- PERCAUTIONS. PT HAS HAD MULTIPLE FLU AND STREP TESTS THAT HAVE BEEN NEG. 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 History of Present Illness Date Seen by Provider: Dec 05, 2019 Time Seen by Provider: 10:10 Initial Comments 64-year-old female says she's had some form of pneumonia or pulmonary infection since the end of October has been coughing occasionally bringing up yellow sputum she's been seen and had strep and flu tests that have been negative says she had a chest x-ray on and the feeling was that she had aspiration pneumonia initial prescribed an antibiotic she apparently didn't tolerate DC'd then took a round of Levaquin which ended 3 days ago says at 2:30 in the morning today she got more short of breath and had a temperature of 101.2 she denies ever having COPD or asthma does relate a history of a prior gastric bypass and GI bleeds says she has had prior episodes of aspiration pneumonia feels that she is susceptible to this she does not recall an aspiration event recently my understanding is that she saw her primary physician in [place] this morning and was sent here with a request to have a coronavirus test and CT of her chest she has not recently traveled she does [place] [employer] there has no not been any coronavirus activity there nor she been exposed to any that she is aware of Allergies and Home Medications Allergies Coded Allergies: prednisone (Verified Allergy, Severe, BREATHING DIFF, 05/09/18) Sulfa (Sulfonamide Antibiotics) (Verified Allergy, Mild, RASH, 05/09/18) metoclopramide (Verified Allergy, Mild, RASH, 05/09/18) NSAIDS (Non-Steroidal Anti-Inflamma (Verified Allergy, Unknown, 05/21/19) atorvastatin (Verified Allergy, Unknown, rash, 06/26/19) nitrofurantoin (Verified Allergy, Unknown, rash, 06/26/19) Home Medications Azithromycin 250 Mg Tablet, 250 MG PO UD TAKE 2 TABLETS ON DAY ONE THEN TAKE 1 TABLET DAILY FOR FOUR MORE DAYS Prescribed by: JOCELYN BROWN on 12/05/19 1305 Magnesium Oxide 500 Mg Capsule, 1,500 MG PO HS, (Reported) Pantoprazole Sodium 40 Mg Tablet.dr, 40 MG PO DAILY, (Reported) Patient Home Medication List Home Medication List Reviewed: Yes Review of Systems Review of Systems Constitutional: fever (patient afebrile here for us) EENTM: throat pain Respiratory: cough, short of breath Cardiovascular: No syncope Gastrointestinal: no symptoms reported Genitourinary: no symptoms reported Musculoskeletal: no symptoms reported Skin: no symptoms reported Past Imcjcem-Hdxoyc-Rpyavz Hx Patient Social History 2nd Hand Smoke Exposure: No Recent Foreign Travel: No Contact w/Someone Who Travel: No Recent Infectious Disease Expo: No Recent Hopitalizations: No Seasonal Allergies Seasonal Allergies: No Past Medical History Surgeries: Yes (GASTRIC BYPASS, ) Abdominal Respiratory: No Asthma, Pneumonia, COPD Cardiac: No Neurological: No Genitourinary: No Gastrointestinal: Yes Gastroesophageal Reflux, Ulcer, Irritable Bowel Musculoskeletal: No Endocrine: No HEENT: No Cancer: No Psychosocial: Yes Anxiety Integumentary: No Blood Disorders: No Physical Exam Vital Signs - First Documented 12/05/19 09:40 Temp 36.4 Pulse 74 Resp 18 B/P (MAP) 155/94 (114) Pulse Ox 95 O2 Delivery Nasal Cannula O2 Flow Rate 2.00 Capillary Refill : Less Than 3 Seconds Height: 5'7.00" Weight: 163lbs. 0.0oz. 73.047276nb; 25.00 BMI Method:Actual General Appearance: WD/WN, mild distress Eyes: Bilateral Eye PERRL, Bilateral Eye EOMI HEENT: PERRL/EOMI, normal ENT inspection, TMs normal, pharynx normal Neck: supple Respiratory: rhonchi, wheezing (few squeeky sounds) Cardiovascular: regular rate, rhythm Gastrointestinal: normal bowel sounds, non tender, soft Extremities: non-tender, no pedal edema, no calf tenderness Focused Exam Lactate Level 12/05/19 09:55: Lactic Acid Level 1.55 Lactic Acid Level Laboratory Tests Test 12/05/19 09:55 Lactic Acid Level 1.55 MMOL/L (0.50-2.00) Progress/Results/Core Measures Suspected Sepsis Recent Fever Within 48 Hours: Yes Infection Criteria Present: Documented Infection New/Unexplained Altered Menta: No Sepsis Screen: No Definite Risk SIRS Temperature: Pulse: 74 Respiratory Rate: 18 Laboratory Tests 12/05/19 09:55: White Blood Count 7.0 Blood Pressure 155 /94 Mean: 114 12/05/19 09:55: Lactic Acid Level 1.55 Laboratory Tests 12/05/19 09:55: Creatinine 0.80, Platelet Count 417H, Total Bilirubin 0.3 Results/Orders Lab Results Laboratory Tests Test 12/05/19 00:00 12/05/19 09:55 12/05/19 10:13 Range/Units White Blood Count 7.0 4.3-11.0 10^3/uL Red Blood Count 4.32 L 4.35-5.85 10^6/uL Hemoglobin 10.6 L 11.5-16.0 G/DL Hematocrit 34 L 35-52 % Mean Corpuscular Volume 79 L 80-99 FL Mean Corpuscular Hemoglobin 25 25-34 PG Mean Corpuscular Hemoglobin Concent 31 L 32-36 G/DL Red Cell Distribution Width 17.6 H 10.0-14.5 % Platelet Count 417 H 130-400 10^3/uL Mean Platelet Volume 9.3 7.4-10.4 FL Neutrophils (%) (Auto) 51 42-75 % Lymphocytes (%) (Auto) 37 12-44 % Monocytes (%) (Auto) 8 0-12 % Eosinophils (%) (Auto) 3 0-10 % Basophils (%) (Auto) 1 0-10 % Neutrophils # (Auto) 3.6 1.8-7.8 X 10^3 Lymphocytes # (Auto) 2.6 1.0-4.0 X 10^3 Monocytes # (Auto) 0.5 0.0-1.0 X 10^3 Eosinophils # (Auto) 0.2 0.0-0.3 10^3/uL Basophils # (Auto) 0.1 0.0-0.1 10^3/uL D-Dimer 0.86 H 0.00-0.49 UG/ML Sodium Level 143 135-145 MMOL/L Potassium Level 3.8 3.6-5.0 MMOL/L Chloride Level 104 98-107 MMOL/L Carbon Dioxide Level 25 21-32 MMOL/L Anion Gap 14 5-14 MMOL/L Blood Urea Nitrogen 13 7-18 MG/DL Creatinine 0.80 0.60-1.30 MG/DL Estimat Glomerular Filtration Rate > 60 BUN/Creatinine Ratio 16 Glucose Level 108 H 70-105 MG/DL Lactic Acid Level 1.55 0.50-2.00 MMOL/L Calcium Level 9.1 8.5-10.1 MG/DL Corrected Calcium 9.0 8.5-10.1 MG/DL Total Bilirubin 0.3 0.1-1.0 MG/DL Aspartate Amino Transf (AST/SGOT) 20 5-34 U/L Alanine Aminotransferase (ALT/SGPT) 11 0-55 U/L Alkaline Phosphatase 89 40-136 U/L Total Protein 7.2 6.4-8.2 GM/DL Albumin 4.1 3.2-4.5 GM/DL Urine Color YELLOW Urine Clarity CLEAR Urine pH 8.0 5-9 Urine Specific [place] 1.020 1.016-1.022 Urine Protein NEGATIVE NEGATIVE Urine Glucose (UA) NEGATIVE NEGATIVE Urine Ketones NEGATIVE NEGATIVE Urine Nitrite NEGATIVE NEGATIVE Urine Bilirubin NEGATIVE NEGATIVE Urine Urobilinogen 0.2 < = 1.0 MG/DL Urine Leukocyte Esterase NEGATIVE NEGATIVE Urine RBC (Auto) NEGATIVE NEGATIVE Urine RBC NONE /HPF Urine WBC NONE /HPF Urine Squamous Epithelial Cells 0-2 /HPF Urine Crystals NONE /LPF Urine Bacteria NONE /HPF Urine Casts NONE /LPF Urine Mucus NEGATIVE /LPF Urine Culture Indicated NO Micro Results Microbiology 12/05/19 Influenza Types A,B Antigen (DAVID) - Final, Complete My Orders Orders - JOCELYN BROWN MD Iv/Invasive Line Insertion .IV start (12/05/19 09:25) Blood Culture (12/05/19 09:25) Lactic Acid Analyzer (12/05/19 09:25) Cbc With Automated Diff (12/05/19 09:25) Comprehensive Metabolic Panel (12/05/19 09:25) Influenza A And B Antigens (12/05/19 09:54) Nursing Communication (Order) (12/05/19 09:54) Chest 1 View Ap/Pa Only (12/05/19 10:02) O2 (12/05/19 10:27) Ed Iv/Invasive Line Start (12/05/19 10:27) Monitor-Rhythm Ecg Trace Only (12/05/19 10:27) Urinalysis (12/05/19 10:27) Fibrin Degradation Products (12/05/19 10:31) Methylprednisolone Sod Succ (Solu-Medrol (12/05/19 10:45) Rx-Albuterol Inhaler (Rx-Proair) (12/05/19 10:42) Rx-Albuterol Inhaler (Rx-Proair) (12/05/19 10:54) Ct Angio Chest W (12/05/19 11:49) Iohexol Injection (Omnipaque 350 Mg/Ml 1 (12/05/19 12:00) Received Contrast (Hold Metformin- Contr (12/05/19 12:00) Sodium Chloride Flush (Catheter Flush Sy (12/05/19 12:00) Ns (Ivpb) (Sodium Chloride 0.9% Ivpb Bag (12/05/19 12:00) Medications Given in ED Current Medications Medications Dose Ordered Sig/Eloy Route Start Time Stop Time Status Last Admin Dose Admin Iohexol 100 ml ONCE ONCE IV 12/05/19 12:00 12/05/19 12:01 DC 12/05/19 12:23 100 ML Methylprednisolone Sodium Succinate 125 mg ONCE ONCE IVP 12/05/19 10:45 12/05/19 10:46 DC 12/05/19 11:07 125 MG Sodium Chloride 10 ml NEEDED PRN IV 12/05/19 12:00 12/05/19 12:23 10 ML Sodium Chloride 100 ml ONCE ONCE IV 12/05/19 12:00 12/05/19 12:01 DC 12/05/19 12:23 100 ML Vital Signs/I&O 12/05/19 12/05/19 09:40 09:40 Temp 36.4 Pulse 74 Resp 18 B/P (MAP) 155/94 (114) Pulse Ox 95 O2 Delivery Nasal Cannula Room Air O2 Flow Rate 2.00 Capillary Refill : Less Than 3 Seconds Blood Pressure Mean: 114 Progress Note : Progress Note Hemoglobin is 10.6 white blood count 7000 CMP negative lactic acid normal UA negative D dimer is elevated test x-ray shows no infiltrate no active disease CT chest shows no evidence of pulmonary embolus no infiltrates some nodular densities identical to the last CT Patient has maintained O2 sats in the high 90s on RA throughout she gets anxious and breathes fast at times otherwise very stable appearing No indication for hospitalization at this point she does have a coronavirus test pending we'll discharge home on azithromycin. She has inhalers she has not been able to tolerate prednisone in the past she is to self-isolation until Coronavirus test is back negative Departure Impression Primary Impression: Dyspnea Qualified Codes: R06.00 - Dyspnea, unspecified Additional Impression: Bronchospasm Disposition: HOME, SELF-CARE Condition: Stable Departure-Patient Inst. Decision time for Depature: 13:05 Referrals: VIRGILIO ALONZO MD (PCP/Family) Primary Care Physician Patient Instructions: Shortness of Breath (Dyspnea) (DC), Acute Bronchitis, Adult (DC) Add. Discharge Instructions: We asked that you self isolated at home wear a mask avoid direct contact with others If the coronavirus test comes back negative and you feel well enough you could return to work on - Scripts Azithromycin (Azithromycin) 250 Mg Tablet 250 MG PO UD, #6 TAB TAKE 2 TABLETS ON DAY ONE THEN TAKE 1 TABLET DAILY FOR FOUR MORE DAYS Prov: JOCELYN BROWN MD 12/05/19 JOCELYN BROWN MD Dec 05, 2019 10:20
--- NOTE | 2019-12-05 10:30 | Diagnostic Imaging Report ---
INDICATION: Fever, cough, sore throat COMPARISON: 06/26/2019 TECHNIQUE: Single frontal radiograph of the chest dated 12/05/2019 FINDINGS: The cardiac silhouette is within normal limits in size. No significant pulmonary vascular congestion. The lungs are clear of focal pulmonary opacity. No pleural effusion. No pneumothorax. No acute osseous abnormality. IMPRESSION: Stable examination without acute cardiopulmonary abnormality. Dictated by: Dictated on workstation # [id number]
[2019-12-05 10:37] LABS: ALANINE AMINOTRANSFERASE 11 U/L (0-55); ALBUMIN 4.1 GM/DL (3.2-4.5); ALKALINE PHOSPHATASE 89 U/L (40-136); BILIRUBIN,TOTAL 0.3 MG/DL (0.1-1.0); BUN/CREATININE RATIO 16; CALCIUM 9.1 MG/DL (8.5-10.1); CARBON DIOXIDE 25 MMOL/L (21-32); CHLORIDE 104 MMOL/L (98-107); GFR ESTIMATED > 60; GLUCOSE 108 MG/DL (70-105); POTASSIUM 3.8 MMOL/L (3.6-5.0); SODIUM 143 MMOL/L (135-145); TOTAL PROTEIN 7.2 GM/DL (6.4-8.2)
[2019-12-05 10:42] LABS: BILIRUBIN,URINE NEGATIVE (NEGATIVE); CLARITY,URINE CLEAR; COLOR,URINE YELLOW; GLUCOSE, URINE (UA) NEGATIVE (NEGATIVE); KETONES,URINE NEGATIVE (NEGATIVE); LEUKOCYTE ESTERASE ,URINE NEGATIVE (NEGATIVE); NITRITE,URINE NEGATIVE (NEGATIVE); PROTEIN,URINE NEGATIVE (NEGATIVE); SQUAMOUS EPITHELIAL CELL,UR 0-2 /HPF
[2019-12-05] MEDS ORDERED: RX-ALBUTEROL INHALER (PROAIR) 8.5 GM IH ONE (10:42)
[2019-12-05] MEDS ORDERED: methylPREDNISolone 125 MG (Solu-MEDROL) VIAL IVP ONE (10:45)
[2019-12-05] MEDS ORDERED: RX-ALBUTEROL INHALER (PROAIR) 8.5 GM IH STA (10:54)
--- NOTE | 2019-12-05 11:11 | NUR ---
PULSE OX ON ROOM AIR 100% .
--- NOTE | 2019-12-05 11:30 | NUR ---
CALLED PT ON HER CELL PHONE ET UPDATED HER THAT WE WERE WAITING ON LABS THEN SHE WILL GO TO CT.
--- OUTSIDE RECORDS SUMMARY | 2019-12-05 11:47 | XMS REPORT ---
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 Active 697262032 Problem Iron deficiency anemia due to chronic blood loss D 50.0 Active 004920038 Problem Chronic fatigue R53.82 Active 5270 2002 Problem Benign essential hypertension I10 Active 9828771 Problem Atrial tachycardia I47.1 Active 2 38114919 Problem Hypotension I95.9 Active 94004563 ALLERGIES Substance Reaction Event Type Date Status SulfADIAZINE Unknown Drug Allergy Nov, Active Reglan Unknown Drug Allergy Nov, Active PredniSONE Unknown Drug Allergy Nov, Active ENCOUNTERS Encounter Location Date Diagnosis [place] [address] [place] [phone] 9 May, [place] [address] [place] [phone] 9 May, Erosion of intestine K63.3 ; Gastrointestinal hemorrhage, unspecified gastrointestinal hemorrhage type K92.2 and Iron deficiency anemia due to chronic blood loss D50.0 [facility] [address] [place] [phone] 9 May, [facility] [address] [place] [phone] 9 May, [facility] [address] [place] [phone] 9 May, Benign essential hypertension I10 [facility] [address] [place] [address] [phone] 9 Feb, [facility] [address] [place] [phone] 9 Feb, [facility] [address] [place] [id number] [address] 9 Feb, [place] [address] [id number] [address] 9 Feb, [facility] [address] [place] [id number] [address] 9 Feb, Anemia D64.9 ; Gastrointestinal hemorrhage, unspecified gastrointestinal hemorrhage type K92.2 and SOB (shortness of breath) R06.02 [place] [address] [place], [place] [id number] [place] [phone] 9 Nov, [place] [address] [place] [phone] 9 Nov, Benign essential hypertension I10 ; Atrial tachycardia I47.1 ; Hypotension I95.9 and Chronic fatigue R53.82 IMMUNIZATIONS No Known Immunizations SOCIAL HISTORY Never Assessed REASON FOR VISIT Establish Care. Heart problems, having high and low blood pressure with tachycar matthew, has been worse in the last 2-3 weeks. PILAR Fernandes PLAN OF CARE Activity Details Follow Up with Cardiology soon. Reason : VITAL SIGNS Height 67 in 2018-11-22 Weight 164.8 lbs 2018-11-22 Temperature 98.3 degrees Fahrenheit 2018-11-22 Heart Rate 68 bpm 2018-11-22 Respiratory Rate 16 2018-11-22 BMI 25.81 kg/m2 2018-11-22 Blood pressure systolic 128 mmHg 2018-11-22 Blood pressure diastolic 74 mmHg 2018-11-22 MEDICATIONS Medication Instructions Dosage Frequency Start Date End Date Duration S tatus Fish Oil Active Dicyclomine HCl 10 MG Orally 4 times a day 1 capsule 6h 30 day(s) Active Zofran 4 mg sublingual q8h prn 1 tab 10 days A ctive Metoprolol Succinate ER 50 MG Orally Once a day 1 tablet 24h 30 day(s) Active Cyclobenzaprine HCl 5 MG Orally 3 times a day 1 tablet 8h 30 days Active Magnesium Active RESULTS No Results PROCEDURES Procedure Date Ordered Result Body Site ELECTROCARDIOGRAM, TRACING November 22, 2018 [facility] VISIT ESTABLISHED PATIENT November 22, 2018 VENVALERIA, ROUTINE* November 22, 2018 LAB NOT BILLED BY [facility] November 22, 2018 INSTRUCTIONS MEDICATIONS ADMINISTERED No Known Medications MEDICAL (GENERAL) HISTORY Type Description Date Medical History hypertension Medical History tachycardia Medical History hypotension Surgical History tonsillectomy Surgical History cholecystectomy Surgical History breast biopsy Surgical History hysterectomy Surgical History gastric bypass Surgical History shoulder arthroscopy Surgical History cataract removal Surgical History adhesions removed in abdomen
--- OUTSIDE RECORDS SUMMARY | 2019-12-05 11:48 | XMS REPORT | Continuity of Care Document ---
Author Organization Unknown Address Unknown Phone Unavailable Allergies Active Description Code Type Severity Reaction Onset Reported/Identified Relationship to Patient Clinical Status Yes prednisone [id number] Drug Allerg y Severe BREATHING DIFF 05/09/[id number] soto Allergy Mild RASH 05/09/2018 Yes Sulfa (Sulfonamide Antibiotics) [id number] Drug Allergy Mild RASH 8 Yes levofloxacin [id number] Drug Allergy Unknown N/A 05/21/2019 Yes NSAIDS (Non-Steroidal Anti-Inflamma [id number] Drug Allergy Unknown N/A 05/21/2019 Yes atorvastatin [id number] Drug Allergy Unknown rash 06/26/2019 Yes morphine [id number] Drug Allergy Unknown rash, swelling 06/26/[id number] soto Allergy Unknown rash 06/26/2019 Medications There is no data. Problems Date Dx Coded Attending Type Code Diagnosis Diagnosed By 04/26/2018 THOMAS QUINTANILLA MD Ot H26 .9 UNSPECIFIED CATARACT 05/09/2018 THOMAS QUINTANILLA MD Ot Z01.818 ENCOUNTER FOR OTHER PREPROCEDURAL EXAMIN 05/14/2018 THOMAS QUINTANILLA MD Ot H26 .9 UNSPECIFIED CATARACT 05/14/2018 THOMAS QUINTANILLA MD Ot I95 .9 HYPOTENSION, UNSPECIFIED 05/16/2018 THOMAS QUINTANILLA MD Ot H26 .9 UNSPECIFIED CATARACT 05/16/2018 THOMAS QUINTANILLA MD Ot I95 .9 HYPOTENSION, UNSPECIFIED 05/30/2018 THOMAS QUINTANILLA MD Ot H26 .9 UNSPECIFIED CATARACT 05/30/2018 THOMAS QUINTANILLA MD Ot I95 .9 HYPOTENSION, UNSPECIFIED 05/21/2019 Ot 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, RIGHT EYE 05/21/2019 Ot Z01.818 EN COUNTER FOR OTHER PREPROCEDURAL EXAMIN 05/21/2019 ANDREEA DUPONT, PAULA Roy Ot K91.8 9 OTH POSTPROCEDURAL COMPLICATIONS AND DIS 05/21/2019 ANDREEA DUPONT, PAULA Roy Ot N30.9 0 CYSTITIS, UNSPECIFIED WITHOUT HEMATURIA 05/21/2019 PAULA DORAN MD Ot R10.1 3 EPIGASTRIC PAIN 05/21/2019 PAULA DORAN MD Ot R11.0 NAUSEA 05/21/2019 PAULA DORAN MD Ot R11.1 4 BILIOUS VOMITING 05/21/2019 PAULA DORAN MD Ot Z88.1 ALLERGY STATUS TO OTHER ANTIBIOTIC AGENT 05/21/2019 PAULA DORAN MD Ot Z88.2 ALLERGY STATUS TO SULFONAMIDES STATUS 05/21/2019 PAULA DORAN MD Ot Z88.6 ALLERGY STATUS TO ANALGESIC AGENT STATUS 05/21/2019 PAULA DORAN MD Ot Z88.8 ALLERGY STATUS TO OTH DRUG/MEDS/BIOL SUB 05/26/2019 PAULA DORAN MD Ot K91.8 9 OTH POSTPROCEDURAL COMPLICATIONS AND DIS 05/26/2019 PAULA DORAN MD Ot N30.9 0 CYSTITIS, UNSPECIFIED WITHOUT HEMATURIA 05/26/2019 PAULA DORAN MD Ot R10.1 3 EPIGASTRIC PAIN 05/26/2019 PAULA DORAN MD Ot R11.0 NAUSEA 05/26/2019 PAULA DORAN MD Ot R11.1 4 BILIOUS VOMITING 05/26/2019 PAULA DORAN MD Ot Z88.1 ALLERGY STATUS TO OTHER ANTIBIOTIC AGENT 05/26/2019 PAULA DORAN MD Ot Z88.2 ALLERGY STATUS TO SULFONAMIDES STATUS 05/26/2019 PAULA DORAN MD Ot Z88.6 ALLERGY STATUS TO ANALGESIC AGENT STATUS 05/26/2019 PAULA DORAN MD Ot Z88.8 ALLERGY STATUS TO OTH DRUG/MEDS/BIOL SUB 07/01/2019 NATE BECERRA DO Ot K21. 9 GASTRO-ESOPHAGEAL REFLUX DISEASE WITHOUT 07/01/2019 NATE BECERRA DO Ot R06. 00 DYSPNEA, UNSPECIFIED 07/01/2019 NATE BECERRA DO Ot R42 DIZZINESS AND GIDDINESS 07/01/2019 NATE BECERRA DO Ot Z88. 1 ALLERGY STATUS TO OTHER ANTIBIOTIC AGENT 07/01/2019 NATE BECERRA DO Ot Z88. 2 ALLERGY STATUS TO SULFONAMIDES STATUS 07/01/2019 NATE BECERRA DO Ot Z88. 5 ALLERGY STATUS TO NARCOTIC AGENT STATUS 07/01/2019 NATE BECERRA DO Ot Z88. 6 ALLERGY STATUS TO ANALGESIC AGENT STATUS 07/01/2019 NATE BECERRA DO Ot Z88. 8 ALLERGY STATUS TO OTH DRUG/MEDS/BIOL SUB 07/03/2019 NATE BECERRA DO Ot K21. 9 GASTRO-ESOPHAGEAL REFLUX DISEASE WITHOUT 07/03/2019 NATE BECERRA DO Ot R06. 00 DYSPNEA, UNSPECIFIED 07/03/2019 NATE BECERRA DO Ot R42 DIZZINESS AND GIDDINESS 07/03/2019 NATE BECERRA DO Ot Z88. 1 ALLERGY STATUS TO OTHER ANTIBIOTIC AGENT 07/03/2019 NATE BECERRA DO Ot Z88. 2 ALLERGY STATUS TO SULFONAMIDES STATUS 07/03/2019 NATE BECERRA DO Ot Z88. 5 ALLERGY STATUS TO NARCOTIC AGENT STATUS 07/03/2019 ANTE BECERRA DO Ot Z88. 6 ALLERGY STATUS TO ANALGESIC AGENT STATUS 07/03/2019 NATE BECERRA DO Ot Z88. 8 ALLERGY STATUS TO OTH DRUG/MEDS/BIOL SUB Procedures There is no data. Results Test Result Range CMP - 11/22/18 09:08 GLUCOSE 109 mg/dL 65-99 UREA NITROGEN (BUN) 12 mg/dL 7-25 CREATININE 0.84 mg/dL 0.50-0.99 eGFR NON-AFR. BAHRAINI 73 mL/min/1.73m2 > OR = 60 eGFR 85 mL/min/1.73m2 > OR = 60 BUN/CREATININE RATIO NOT APPLICABLE (calc) 6-22 SODIUM 141 mmol/L 135-146 POTASSIUM 4.4 mmol/L 3.5-5.3 CHLORIDE 106 mmol/L 98-110 CARBON DIOXIDE 27 mmol/L 20-32 CALCIUM 9.0 mg/dL 8.6-10.4 PROTEIN, TOTAL 6.8 g/dL 6.1-8.1 ALBUMIN 4.1 g/dL 3.6-5.1 GLOBULIN 2.7 g/dL (calc) 1.9-3.7 ALBUMIN/GLOBULIN RATIO 1.5 (calc) 1.0-2. 5 BILIRUBIN, TOTAL 0.4 mg/dL 0.2-1.2 ALKALINE PHOSPHATASE 84 U/L 33-130 AST 21 U/L 10-35 ALT 17 U/L 6-29 CBC w/MANUAL DIFF - 11/22/18 09:08 WHITE BLOOD CELL COUNT 6.7 Thousand/uL 3 .8-10.8 RED BLOOD CELL COUNT 4.39 Million/uL 3.8 0-5.10 HEMOGLOBIN 11.4 g/dL 11.7-15.5 HEMATOCRIT 35.6 % 35.0-45.0 MCV 81.1 fL 80.0-100.0 MCH 26.0 pg 27.0-33.0 MCHC 32.0 g/dL 32.0-36.0 RDW 14.6 % 11.0-15.0 PLATELET COUNT 427 Thousand/uL 140-400 MPV 9.8 fL 7.5-12.5 ABSOLUTE NEUTROPHILS 3846 cells/uL 1500- 7800 ABSOLUTE MONOCYTES 201 cells/uL 200-950 ABSOLUTE EOSINOPHILS 67 cells/uL 15-500 ABSOLUTE BASOPHILS 67 cells/uL 0-200 NEUTROPHILS 57.4 % NRG LYMPHOCYTES 33.7 % NRG MONOCYTES 3.0 % NRG EOSINOPHILS 1.0 % NRG BASOPHILS 1.0 % NRG ABSOLUTE BAND NEUTROPHILS 261 cells/uL 0 -750 ABSOLUTE LYMPHOCYTES 2258 cells/uL 850-3 900 BAND NEUTROPHILS 3.9 % NRG PLATELET ESTIMATION INCREASED ADEQUATE Complete blood count (CBC) with automate d white blood cell (WBC) differential - 05/21/19 19:40 Blood leukocytes automated count (number/volume) 11.4 10*3/uL 4.3-11.0 Blood erythrocytes automated count (number/volume) 4.03 10*6/uL 4.35-5.85 Venous blood hemoglobin measurement (mass/volume) 10.1 g/dL 11.5-16.0 Blood hematocrit (volume fraction) 33 % 35-52 Automated erythrocyte mean corpuscular volume 81 [ foz_us] 80-99 Automated erythrocyte mean corpuscular h emoglobin (mass per erythrocyte) 25 pg 25-34 Automated erythrocyte mean corpuscular h emoglobin concentration measurement (mass/volume) 31 g/dL 32-36 Automated erythrocyte distribution width ratio 16. 7 % 10.0- 14.5 Automated blood platelet count (count/volume) 399 10*3/uL 130-400 Automated blood platelet mean volume measurement 9.7 [foz_us] 7.4-10.4 Automated blood neutrophils/100 leukocytes 87 % 42-75 Automated blood lymphocytes/100 leukocytes 12 % 12-44 Blood monocytes/100 leukocytes 1 % 0-12 Automated blood eosinophils/100 leukocytes 0 % 0-10 Automated blood basophils/100 leukocytes 0 % 0-10 Blood neutrophils automated count (number/volume) 9.9 10*3 1.8-7.8 Blood lymphocytes automated count (number/volume) 1.4 10*3 1.0-4.0 Blood monocytes automated count (number/volume) 0. 1 10*3 0.0-1.0 Automated eosinophil count 0.0 10*3/uL 0 .0-0.3 Automated blood basophil count (count/volume) 0.0 10*3/uL 0.0-0.1 Comprehensive metabolic panel - 05/21/19 19:40 Serum or plasma sodium measurement (moles/volume) 140 mmol/L 135-145 Serum or plasma potassium measurement (moles/volume) 3.3 mmol/L 3.6-5.0 Serum or plasma chloride measurement (moles/volume) 101 mmol/L 98-107 Carbon dioxide 24 mmol/L 21-32 Serum or plasma anion gap determination (moles/volume) 15 mmol/L 5-14 Serum or plasma urea nitrogen measurement (mass/volume ) 20 mg/dL 7-18 Serum or plasma creatinine measurement (mass/volume) 0.97 mg/dL 0.60-1.30 Serum or plasma urea nitrogen/creatinine mass ratio 21 NRG Serum or plasma creatinine measurement w ith calculation of estimated glomerular filtration rate 57 NRG Serum or plasma glucose measurement (mass/volume) 161 mg/dL 70-105 Serum or plasma calcium measurement (mass/volume) 8.9 mg/dL 8.5-10.1 Serum or plasma total bilirubin measurement (mass/volu me) 0.3 mg/dL 0.1-1.0 Serum or plasma alkaline phosphatase dutch surement (enzymatic activity/volume) 84 U/L 40-136 Serum or plasma aspartate aminotransfera se measurement (enzymatic activity/volume) 40 U/L 5-34 Serum or plasma alanine aminotransferase measurement (enzymatic activity/volume) 21 U/L 0-55 Serum or plasma protein measurement (mass/volume) 7.0 g/dL 6.4-8.2 Serum or plasma albumin measurement (mass/volume) 4.0 g/dL 3.2-4.5 CALCIUM CORRECTED 8.9 mg/dL 8.5-10.1 Lipase - 05/21/19 19:40 Lipase 30 U/L 8-78 Manual absolute plasma cell count - 01/03 19:40 Blood monocytes/100 leukocytes 1 % NRG Manual blood segmented neutrophils/100 leukocytes 80 % NRG Blood band neutrophils/100 leukocytes 10 % NRG Manual blood lymphocytes/100 leukocytes 9 % NRG Blood hypochromia detection by light microscopy 2+ NRG Magnesium - 05/21/19 19:40 Magnesium 1.9 mg/dL 1.6-2.4 Bacterial blood culture - 05/21/19 19:40 Bacterial blood culture NG NRG Complete urinalysis with reflex to cultu re - 05/21/19 21:25 Urine color determination PALE YELLOW N RG Urine clarity determination CLEAR NR G Urine pH measurement by test strip 5.5 5-9 Specific gravity of urine by test strip <= 1.016-1.022 Urine protein assay by test strip, semi-quantitative NEGATIVE NEGATIVE Urine glucose detection by automated test strip NE GATIVE NEGATIVE Erythrocytes detection in urine sediment by light micr oscopy NEGATIVE NEGATIVE Urine ketones detection by automated test strip NE GATIVE NEGATIVE Urine nitrite detection by test strip NEGATIVE NEGATIVE Urine total bilirubin detection by test strip NEGA TIVE NEGATIVE Urine urobilinogen measurement by automated test strip (mass/volume) 0.2 mg/dL NORMAL Urine leukocyte esterase detection by dipstick 1+ NEGATIVE Automated urine sediment erythrocyte cou nt by microscopy (number/high power field) NONE NRG Automated urine sediment leukocyte count by microscopy (number/high power field) [HPF] NRG Bacteria detection in urine sediment by light microsco py TRACE NRG Squamous epithelial cells detection in u rine sediment by light microscopy 5-10 NRG Crystals detection in urine sediment by light microsco py NONE NRG Casts detection in urine sediment by light microscopy NONE NRG Mucus detection in urine sediment by light microscopy NEGATIVE NRG Complete urinalysis with reflex to culture YES NRG Bacterial urine culture - 05/21/19 21:25 Bacterial urine culture [id number] NRG COLONY COUNT 20,000 CFU/ML NRG FTX;REPORTABLE SEE COMMENT NRG Blood lactic acid measurement (moles/vol ume) - 05/21/19 22:00 Blood lactic acid measurement (moles/volume) 1.48 mmol/L 0.50-2.00 Bacterial blood culture - 05/21/19 22:00 Bacterial blood culture NG NRG CBC w/MANUAL DIFF - 05/27/19 11:31 WHITE BLOOD CELL COUNT 8.2 Thousand/uL 3 .8-10.8 RED BLOOD CELL COUNT 4.26 Million/uL 3.8 0-5.10 HEMOGLOBIN 10.7 g/dL 11.7-15.5 HEMATOCRIT 34.9 % 35.0-45.0 MCV 81.9 fL 80.0-100.0 MCH 25.1 pg 27.0-33.0 MCHC 30.7 g/dL 32.0-36.0 RDW 15.4 % 11.0-15.0 PLATELET COUNT 445 Thousand/uL 140-400 MPV 9.5 fL 7.5-12.5 ABSOLUTE NEUTROPHILS 4592 cells/uL 1500- 7800 ABSOLUTE MONOCYTES 410 cells/uL 200-950 ABSOLUTE EOSINOPHILS 246 cells/uL 15-500 ABSOLUTE BASOPHILS 0 cells/uL 0-200 NEUTROPHILS 56.0 % NRG LYMPHOCYTES 36.0 % NRG MONOCYTES 5.0 % NRG EOSINOPHILS 3.0 % NRG BASOPHILS 0 % NRG ABSOLUTE LYMPHOCYTES 2952 cells/uL 850-3 900 PLATELET ESTIMATION ADEQUATE ADEQUATE CBC MORPHOLOGY NORMAL Complete blood count (CBC) with automate d white blood cell (WBC) differential - 06/26/19 10:20 Blood leukocytes automated count (number/volume) 12.3 10*3/uL 4.3-11.0 Blood erythrocytes automated count (number/volume) 4.47 10*6/uL 4.35-5.85 Venous blood hemoglobin measurement (mass/volume) 11.1 g/dL 11.5-16.0 Blood hematocrit (volume fraction) 35 % 35-52 Automated erythrocyte mean corpuscular volume 79 [ foz_us] 80-99 Automated erythrocyte mean corpuscular h emoglobin (mass per erythrocyte) 25 pg 25-34 Automated erythrocyte mean corpuscular h emoglobin concentration measurement (mass/volume) 32 g/dL 32-36 Automated erythrocyte distribution width ratio 17. 2 % 10.0- 14.5 Automated blood platelet count (count/volume) 407 10*3/uL 130-400 Automated blood platelet mean volume measurement 9.2 [foz_us] 7.4-10.4 Automated blood neutrophils/100 leukocytes 67 % 42-75 Automated blood lymphocytes/100 leukocytes 22 % 12-44 Blood monocytes/100 leukocytes 7 % 0-12 Automated blood eosinophils/100 leukocytes 2 % 0-10 Automated blood basophils/100 leukocytes 1 % 0-10 Blood neutrophils automated count (number/volume) 8.2 10*3 1.8-7.8 Blood lymphocytes automated count (number/volume) 2.7 10*3 1.0-4.0 Blood monocytes automated count (number/volume) 0. 9 10*3 0.0-1.0 Automated eosinophil count 0.3 10*3/uL 0 .0-0.3 Automated blood basophil count (count/volume) 0.1 10*3/uL 0.0-0.1 PT panel in platelet poor plasma by coag ulation assay - 06/26/19 10:20 Prothrombin time (PT) in platelet poor plasma by coagu lation assay 14.2 s 12.2-14.7 INR in platelet poor plasma or blood by coagulation as say 1.1 0.8-1.4 Activated partial thromboplastin time (a PTT) in platelet poor plasma bycoagulation assay - 06/26/19 10:20 Activated partial thromboplastin time (a PTT) in platelet poor plasma bycoagulation assay 27 s 24-35 TROPONIN I FS - 06/26/19 10:20 TROPONIN I FS 0.30 ng/mL <0.30 PROBNP FS - 06/26/19 10:20 PROBNP FS 417.1 pg/mL <75.0 Comprehensive metabolic panel - 06/26/19 10:20 Serum or plasma sodium measurement (moles/volume) 140 mmol/L 135-145 Serum or plasma potassium measurement (moles/volume) 3.6 mmol/L 3.6-5.0 Serum or plasma chloride measurement (moles/volume) 106 mmol/L 98-107 Carbon dioxide 22 mmol/L 21-32 Serum or plasma anion gap determination (moles/volume) 12 mmol/L 5-14 Serum or plasma urea nitrogen measurement (mass/volume ) 15 mg/dL 7-18 Serum or plasma creatinine measurement (mass/volume) 0.83 mg/dL 0.60-1.30 Serum or plasma urea nitrogen/creatinine mass ratio 18 NRG Serum or plasma creatinine measurement w ith calculation of estimated glomerular filtration rate > NRG Serum or plasma glucose measurement (mass/volume) 101 mg/dL 70-105 Serum or plasma calcium measurement (mass/volume) 8.8 mg/dL 8.5-10.1 Serum or plasma total bilirubin measurement (mass/volu me) 0.3 mg/dL 0.1-1.0 Serum or plasma alkaline phosphatase dutch surement (enzymatic activity/volume) 85 U/L 40-136 Serum or plasma aspartate aminotransfera se measurement (enzymatic activity/volume) 21 U/L 5-34 Serum or plasma alanine aminotransferase measurement (enzymatic activity/volume) 13 U/L 0-55 Serum or plasma protein measurement (mass/volume) 6.8 g/dL 6.4-8.2 Serum or plasma albumin measurement (mass/volume) 3.8 g/dL 3.2-4.5 CALCIUM CORRECTED 9.0 mg/dL 8.5-10.1 Magnesium - 06/26/19 10:20 Magnesium 2.2 mg/dL 1.6-2.4 Fibrin D-dimer FEU measurement in platel et poor plasma (mass/volume) - 06/26/19 10:20 Fibrin D-dimer FEU measurement in platelet poor plasma (mass/volume) 0.56 ug/mL 0.00-0.49 Complete blood count (CBC) with automate d white blood cell (WBC) differential - 12/05/19 09:55 Blood leukocytes automated count (number/volume) 7.0 10*3/uL 4.3-11.0 Blood erythrocytes automated count (number/volume) 4.32 10*6/uL 4.35-5.85 Venous blood hemoglobin measurement (mass/volume) 10.6 g/dL 11.5-16.0 Blood hematocrit (volume fraction) 34 % 35-52 Automated erythrocyte mean corpuscular volume 79 [ foz_us] 80-99 Automated erythrocyte mean corpuscular h emoglobin (mass per erythrocyte) 25 pg 25-34 Automated erythrocyte mean corpuscular h emoglobin concentration measurement (mass/volume) 31 g/dL 32-36 Automated erythrocyte distribution width ratio 17. 6 % 10.0- 14.5 Automated blood platelet count (count/volume) 417 10*3/uL 130-400 Automated blood platelet mean volume measurement 9.3 [foz_us] 7.4-10.4 Automated blood neutrophils/100 leukocytes 51 % 42-75 Automated blood lymphocytes/100 leukocytes 37 % 12-44 Blood monocytes/100 leukocytes 8 % 0-12 Automated blood eosinophils/100 leukocytes 3 % 0-10 Automated blood basophils/100 leukocytes 1 % 0-10 Blood neutrophils automated count (number/volume) 3.6 10*3 1.8-7.8 Blood lymphocytes automated count (number/volume) 2.6 10*3 1.0-4.0 Blood monocytes automated count (number/volume) 0. 5 10*3 0.0-1.0 Automated eosinophil count 0.2 10*3/uL 0 .0-0.3 Automated blood basophil count (count/volume) 0.1 10*3/uL 0.0-0.1 Blood lactic acid measurement (moles/vol ume) - 12/05/19 09:55 Blood lactic acid measurement (moles/volume) 1.55 mmol/L 0.50-2.00 Comprehensive metabolic panel - 12/05/19 09:55 Serum or plasma sodium measurement (moles/volume) 143 mmol/L 135-145 Serum or plasma potassium measurement (moles/volume) 3.8 mmol/L 3.6-5.0 Serum or plasma chloride measurement (moles/volume) 104 mmol/L 98-107 Carbon dioxide 25 mmol/L 21-32 Serum or plasma anion gap determination (moles/volume) 14 mmol/L 5-14 Serum or plasma urea nitrogen measurement (mass/volume ) 13 mg/dL 7-18 Serum or plasma creatinine measurement (mass/volume) 0.80 mg/dL 0.60-1.30 Serum or plasma urea nitrogen/creatinine mass ratio 16 NRG Serum or plasma creatinine measurement w ith calculation of estimated glomerular filtration rate > NRG Serum or plasma glucose measurement (mass/volume) 108 mg/dL 70-105 Serum or plasma calcium measurement (mass/volume) 9.1 mg/dL 8.5-10.1 Serum or plasma total bilirubin measurement (mass/volu me) 0.3 mg/dL 0.1-1.0 Serum or plasma alkaline phosphatase dutch surement (enzymatic activity/volume) 89 U/L 40-136 Serum or plasma aspartate aminotransfera se measurement (enzymatic activity/volume) 20 U/L 5-34 Serum or plasma alanine aminotransferase measurement (enzymatic activity/volume) 11 U/L 0-55 Serum or plasma protein measurement (mass/volume) 7.2 g/dL 6.4-8.2 Serum or plasma albumin measurement (mass/volume) 4.1 g/dL 3.2-4.5 CALCIUM CORRECTED 9.0 mg/dL 8.5-10.1 Influenza virus A and B antigen detectio n - 12/05/19 10:10 FLU RESULT NEGATIVE FOR INFLUENZA A AND B ANTIGENS BY IA NRG Complete urinalysis with reflex to cultu re - 12/05/19 10:13 Urine color determination YELLOW NRG Urine clarity determination CLEAR NR G Urine pH measurement by test strip 8.0 5-9 Specific gravity of urine by test strip 1.020 1.016-1.022 Urine protein assay by test strip, semi-quantitative NEGATIVE NEGATIVE Urine glucose detection by automated test strip NE GATIVE NEGATIVE Erythrocytes detection in urine sediment by light micr oscopy NEGATIVE NEGATIVE Urine ketones detection by automated test strip NE GATIVE NEGATIVE Urine nitrite detection by test strip NEGATIVE NEGATIVE Urine total bilirubin detection by test strip NEGA TIVE NEGATIVE Urine urobilinogen measurement by automated test strip (mass/volume) 0.2 mg/dL < = 1.0 Urine leukocyte esterase detection by dipstick NEG ATIVE NEGATIVE Automated urine sediment erythrocyte cou nt by microscopy (number/high power field) NONE NRG Automated urine sediment leukocyte count by microscopy (number/high power field) NONE NRG Bacteria detection in urine sediment by light microsco py NONE NRG Squamous epithelial cells detection in u rine sediment by light microscopy 0-2 NRG Crystals detection in urine sediment by light microsco py NONE NRG Casts detection in urine sediment by light microscopy NONE NRG Mucus detection in urine sediment by light microscopy NEGATIVE NRG Complete urinalysis with reflex to culture NO NRG Encounters ACCT No. Visit Date/Time Discharge Status Pt. Type Provider Facility Loc./Unit Complaint [id number] 11/19/2019 14:20:00 11/19/2019 23:59: 59 [facility] Outpatient [facility] [id number] 05/27/2019 13:00:00 Document Registration [id number] 11/22/2018 08:40:00 Document Registration [id number] 06/26/2019 10:07:00 019 14:37:00 DIS Outpatient NATE BECERRA DO [facility] ER FS SOB; DIZZINESS; CHEST P RESSURE [id number] 05/21/2019 19:28:00 019 23:41:00 DIS Emergency ANDREEA DUPONT, PAULA Roy [facility] ER FS VOMTITING [id number] 05/14/2018 09:58:00 12:05:00 DIS Outpatient THOMAS QUINTANILLA MD [facility] CATARACT LEFT EYE [id number] 05/08/2018 05:40:00 13:51:00 DIS Outpatient THOMAS QUINTANILLA MD [facility] PREOP CATARACT LEFT EYE [id number] 04/26/2018 13:15:00 23:59:59 CLS Outpatient THOMAS QUINTANILLA MD [facility] CATARACT RIGHT EYE [id number] 12/05/2019 10:16:00 Document Registration [id number] 04/24/2018 05:33:00 Document Registration
--- OUTSIDE RECORDS SUMMARY | 2019-12-05 11:48 | XMS REPORT ---
Author Author Kelley ALONZO Organization [facility] Address [address] [address] Care Team Providers Care Weaver Dobby Loom Name Role Phone CLINTON VIRGILIO Unavailable PROBLEMS Type Condition ICD9-CM Code [id number] Code Onset Dates Condition S tatus SNOMED Code Problem Erosion of intestine K63.3 Active 029518964 Problem Iron deficiency anemia due to chronic blood loss D 50.0 Active 573199194 Problem Chronic fatigue R53.82 Active 5270 2002 Problem Benign essential hypertension I10 Active 5380178 Problem Atrial tachycardia I47.1 Active 2 88051273 Problem Hypotension I95.9 Active 18836708 ALLERGIES No Information ENCOUNTERS Encounter Location Date Diagnosis [facility] [address] [place] [phone] 9 May, [place] [address] [place] [phone] 9 May, Erosion of intestine K63.3 ; Gastrointestinal hemorrhage, unspecified gastrointestinal hemorrhage type K92.2 and Iron deficiency anemia due to chronic blood loss D50.0 [place] [address] [place] [phone] 9 May, [facility] [address] [place] [phone] 9 May, [facility] [address] [place] [phone] 9 May, Benign essential hypertension I10 [facility] [address] [place] [phone] 9 Feb, [facility] [address] [place] [phone] 9 Feb, [place] [address] [place] [phone] 9 Feb, [place] [address] [address] [facility] [id number] [place] [address] 9 Feb, [place] [address] [place], [place] [id number] [place] [phone] 9 Feb, Anemia D64.9 ; Gastrointestinal hemorrhage, unspecified gastrointestinal hemorrhage type K92.2 and SOB (shortness of breath) R06.02 [place] [address] [place], [place] [id number] [address] Nov, [place] [address] [place], [place] [id number] [place] [phone] 9 Nov, Benign essential hypertension I10 ; Atrial tachycardia I47.1 ; Hypotension I95.9 and Chronic fatigue R53.82 IMMUNIZATIONS No Known Immunizations SOCIAL HISTORY Never Assessed REASON FOR VISIT PLAN OF CARE VITAL SIGNS MEDICATIONS Medication Instructions Dosage Frequency Start Date End Date Duration S tatus Pantoprazole Sodium 40 mg Orally Once a day 1 tablet 24h Nov 30 day(s) Active RESULTS No Results PROCEDURES No Known procedures INSTRUCTIONS MEDICATIONS ADMINISTERED No Known Medications MEDICAL (GENERAL) HISTORY Type Description Date Medical History hypertension Medical History tachycardia Medical History hypotension Surgical History tonsillectomy Surgical History cholecystectomy Surgical History breast biopsy Surgical History hysterectomy Surgical History gastric bypass Surgical History shoulder arthroscopy Surgical History cataract removal Surgical History adhesions removed in abdomen
[2019-12-05] MEDS ORDERED: IOHEXOL 350 MG/ML 100 ML (OMNIPAQUE 350) VIAL IV ONE (12:00)
[2019-12-05] MEDS ORDERED: HOLD METFORMIN - RECEIVED CONTRAST 20 ML VIAL IV SCH (12:00)
[2019-12-05] MEDS ORDERED: NS 100 ML (IVPB) BAG IV ONE (12:00)
[2019-12-05] MEDS ORDERED: CATHETER FLUSH 10 ML SYR IV PRN (12:00)
--- NOTE | 2019-12-05 12:51 | Diagnostic Imaging Report ---
INDICATION: Shortness of breath, elevated d-dimer. TECHNIQUE: Multiple contiguous axial images were obtained through the chest after uneventful bolus administration of intravenous contrast. 3D reconstructed CTA MIP acquisitions were also performed. Auto Exposure Controls were utilized during the CT exam to meet ALARA standards for radiation dose reduction. Comparison made to 06/26/2019. FINDINGS: The pulmonary parenchymal vessels appear well opacified with no CT evidence of significant pulmonary emboli. The thoracic aorta shows no evidence of aneurysm or dissection. The great vessel origins appear to be patent. There are no enlarged mediastinal or hilar nodes. There are no enlarged axillary nodes or chest wall lesions. Visualized portions of the upper abdomen show no acute finding. Patient does have postop changes status post gastric bypass as well as cholecystectomy. Lung parenchymal windows demonstrated an anatomic variant azygos lobe of the right upper lobe. There is no hoang consolidation. There is some mild dependent atelectatic change in the lung bases. These findings are similar to the previous study. 2 small 3 mm nodules in the superior segment right lower lobe are unchanged compared to the previous study and likely nonsignificance. IMPRESSION: No CT evidence of pulmonary emboli or aortic dissection or aneurysm. There are some dependent atelectatic changes in the lung bases but no definite acute infiltrate. These findings are similar on the previous study of 05/21/2019. There are a few small 3 mm nodules in the right lower lobe which are stable compared to the previous studies and at this size do not require follow-up unless there is high clinical risk. Dictated by: Dictated on workstation # [id number]
--- NOTE | 2019-12-05 12:53 | NUR ---
TALKED WITH PT ON THE PHONE. DENIES NEEDS AT THIS TIME.
[2019-12-05] MEDS ORDERED: AZIT250T12 PO (13:05)
[2019-12-05 13:28] VITALS: BP 139/64
--- NOTE | 2019-12-05 13:28 | NUR ---
VSS TAKEN THRUOUT STAY ET REMAINED STABLE.
--- NOTE | 2019-12-05 13:40 | NUR ---
PT LEFT OUT DECON ROOM.
== END 2019-12-05 13:40 | disposition home or self-care (01) ==
LOC: EDUNIT# 09:24 → ER FS 09:27
DX: J98.01 Acute bronchospasm (principal); J44.9 Chronic obstructive pulmonary disease, unspecified; K21.9 Gastro-esophageal reflux disease without esophagitis; Z88.8 Allergy status to other drugs, medicaments and biological substances; Z88.2 Allergy status to sulfonamides; Z88.6 Allergy status to analgesic agent; Z98.84 Bariatric surgery status
CPT/HCPCS: 36415; 71045; 71275; 80053; 81000; 83605; 85025; 85379; 87040; 87635; 87804; 96374

== ENCOUNTER 2020-02-26 10:38 | Emergency (ER) | payer MEDICARE, OTHER ==
[~2020-02-26] VITALS: Ht 170.7 cm; Wt 74.2 kg
[~2020-02-26 10:38] MED LIST changes: +ALBUTEROL; +AZIT250T12 PO; +BENTYL; +CYCL5TAB; +PANT40TA2 PO
--- NOTE | 2020-02-26 11:23 | Diagnostic Imaging Report ---
Right wrist at 1114 hours. INDICATION: Wrist pain. 3 views were obtained. There are no prior studies available for comparison. FINDINGS: There is no fracture, dislocation or acute bony abnormality evident. There is only mild degenerative disease of the radiocarpal joint. The osseous structures do seem somewhat demineralized, however. The soft tissues are unremarkable. IMPRESSION: 1. There is no evidence for an acute bony abnormality. 2. The osseous structures do seem somewhat demineralized. If clinically indicated, a DEXA scan should be considered for further evaluation of the bone mineral density. Dictated by: Dictated on workstation # [id number]
--- NOTE | 2020-02-26 11:25 | Diagnostic Imaging Report ---
Right forearm. INDICATION: Injury, arm pain. AP and lateral views were obtained. There are no prior studies available for comparison. FINDINGS: There is no fracture, dislocation or acute bony abnormality evident. The wrist and elbow joints are fairly well-maintained. The osseous structures do seem mildly demineralized. The soft tissues are unremarkable. IMPRESSION: There is no evidence for an acute bony abnormality. Dictated by: Dictated on workstation # [id number]
[2020-02-26 11:55] VITALS: BP 146/81
--- NOTE | 2020-02-26 11:56 | ED Upper Extremity ---
General Chief Complaint: Upper Extremity Stated Complaint: RT ARM PAIN Nursing Triage Note: Patient presents to the ED with c/o of right wrist pain. She states she was pulling on an electrical cord when she slipped falling backward. She reports she reached her hands back to brace herself and when she fell onto the rocks felt a pop in her right wrist. Nursing Sepsis Screen: No Definite Risk Source: patient History of Present Illness Date Seen by Provider: Feb 26, 2020 Time Seen by Provider: 11:00 Initial Comments Patient is right-handed female who fell backwards with outstretched hands after losing balance who presents with bilateral wrist patient's. Patient reports persistent right wrist, distal forearm pain, tenderness for the past 3 hours. No deformity noted. Tylenol taken prior to ED arrival. Patient is not on blood thinners. Onset: just prior to arrival Pain/Injury Location: bilateral wrist Method of Injury: fell Modifying Factors: Improves With Movement, Improves With Pain Medication Allergies and Home Medications Allergies Coded Allergies: prednisone (Verified Allergy, Severe, BREATHING DIFF, 05/09/18) Sulfa (Sulfonamide Antibiotics) (Verified Allergy, Mild, RASH, 05/09/18) metoclopramide (Verified Allergy, Mild, RASH, 05/09/18) NSAIDS (Non-Steroidal Anti-Inflamma (Verified Allergy, Unknown, 05/21/19) atorvastatin (Verified Allergy, Unknown, rash, 06/26/19) nitrofurantoin (Verified Allergy, Unknown, rash, 06/26/19) Home Medications Azithromycin 250 Mg Tablet, 250 MG PO UD TAKE 2 TABLETS ON DAY ONE THEN TAKE 1 TABLET DAILY FOR FOUR MORE DAYS Prescribed by: JOCELYN BROWN on 12/05/19 1305 Magnesium Oxide 500 Mg Capsule, 1,500 MG PO HS, (Reported) Pantoprazole Sodium 40 Mg Tablet.dr, 40 MG PO DAILY, (Reported) Patient Home Medication List Home Medication List Reviewed: Yes Review of Systems Constitutional: no symptoms reported EENTM: no symptoms reported Respiratory: no symptoms reported Cardiovascular: no symptoms reported Gastrointestinal: no symptoms reported Musculoskeletal: see HPI Past Jmscpxd-Udqulg-Akwruw Hx Past Med/Social Hx: Reviewed Nursing Past Med/Soc Hx Patient Social History Alcohol Use: Denies Use Recreational Drug Use: No Smoking Status: Never a Smoker 2nd Hand Smoke Exposure: No Recent Foreign Travel: No Contact w/Someone Who Travel: No Recent Infectious Disease Expo: No Recent Hopitalizations: No Physical Abuse: No Sexual Abuse: No Mistreated: No Fear: No Seasonal Allergies Seasonal Allergies: No Past Medical History Surgeries: Yes (GASTRIC BYPASS, ) Abdominal Respiratory: No Asthma, Pneumonia, COPD Cardiac: No Neurological: No Genitourinary: No Gastrointestinal: Yes Gastroesophageal Reflux, Ulcer, Irritable Bowel Musculoskeletal: No Endocrine: No HEENT: No Cancer: No Psychosocial: Yes Anxiety Integumentary: No Blood Disorders: No Physical Exam Vital Signs Vital Signs - First Documented 02/26/20 10:43 Temp 35.9 Pulse 91 Resp 16 B/P (MAP) 146/81 (102) Pulse Ox 100 O2 Delivery Room Air Capillary Refill : Less Than 3 Seconds Height, Weight, BMI Height: 5'7.00" Weight: 163lbs. 0.0oz. 73.060173iq; 25.00 BMI Method:Actual General Appearance: no apparent distress Wrist: No deformity; Yes pain, Yes soft tissue tenderness, Yes swelling Progress/Results/Core Measures Results/Orders My Orders Orders - SHA ZEPEDA DO Wrist 3 View Right (02/26/20 10:48) Forearm 2 View Right (02/26/20 10:48) Orthopedic Equiment (02/26/20 11:41) Vital Signs/I&O 02/26/20 10:43 Temp 35.9 Pulse 91 Resp 16 B/P (MAP) 146/81 (102) Pulse Ox 100 O2 Delivery Room Air Blood Pressure Mean: 102 Departure Communication (Admissions) X-ray R wrist/forearm: No fractures Impression Primary Impression: Sprain of wrist, right Disposition: 01 HOME, SELF-CARE Condition: Stable Departure-Patient Inst. Patient Instructions: Wrist Sprain (DC) Add. Discharge Instructions: Please wear splint and limit right wrist use. Take ibuprofen for pain. Followup with your PCP in 5-7 days if pain persists. All discharge instructions reviewed with patient and/or family. Voiced understanding. SHA ZEPEDA DO Feb 26, 2020 11:56
--- OUTSIDE RECORDS SUMMARY | 2020-02-26 12:13 | XMS REPORT | Continuity of Care Document ---
Author Organization Unknown Address Unknown Phone Unavailable Allergies Active Description Code Type Severity Reaction Onset Reported/Identified Relationship to Patient Clinical Status Yes prednisone [id number] Drug Allerg y Severe BREATHING DIFF 05/09/[id number] soto Allergy Mild RASH 05/09/2018 Yes Sulfa (Sulfonamide Antibiotics) [id number] Drug Allergy Mild RASH 8 Yes levofloxacin [id number] Drug Allergy Unknown N/A 05/21/2019 Yes NSAIDS (Non-Steroidal Anti-Inflamma [id number] Drug Allergy Unknown N/A 05/21/2019 Yes atorvastatin [id number] Drug Allergy Unknown rash 06/26/2019 Yes morphine [id number] Drug Allergy Unknown rash, swelling 06/26/[id number] soto Allergy Unknown rash 06/26/2019 Medications [...] ALLERGY STATUS TO NARCOTIC AGENT STATUS 07/03/2019 NATE BECERRA DO Ot Z88. 6 ALLERGY STATUS TO ANALGESIC AGENT STATUS 07/03/2019 NATE BECERRA DO Ot Z88. 8 ALLERGY STATUS TO OTH DRUG/MEDS/BIOL SUB 12/05/2019 JOCELYN BROWN MD Ot J44. 9 CHRONIC OBSTRUCTIVE PULMONARY DISEASE, U 12/05/2019 JOCELYN BROWN MD Ot J98. 01 ACUTE BRONCHOSPASM 12/05/2019 JOCELYN BROWN MD Ot K21. 9 GASTRO-ESOPHAGEAL REFLUX DISEASE WITHOUT 12/05/2019 JOCELYN BROWN MD Ot R05 COUGH 12/05/2019 JOCELYN BROWN MD Ot Z88. 2 ALLERGY STATUS TO SULFONAMIDES STATUS 12/05/2019 JOCELYN BROWN MD Ot Z88. 6 ALLERGY STATUS TO ANALGESIC AGENT STATUS 12/05/2019 JOCELYN BROWN MD Ot Z88. 8 ALLERGY STATUS TO OTH DRUG/MEDS/BIOL SUB 12/05/2019 JOCELYN BROWN MD Ot Z98. 84 BARIATRIC SURGERY STATUS 12/10/2019 JOCELYN BROWN MD Ot J44. 9 CHRONIC OBSTRUCTIVE PULMONARY DISEASE, U 12/10/2019 JOCELYN BROWN MD Ot J98. 01 ACUTE BRONCHOSPASM 12/10/2019 JOCELYN BROWN MD Ot K21. 9 GASTRO-ESOPHAGEAL REFLUX DISEASE WITHOUT 12/10/2019 JOCELYN BROWN MD Ot R05 COUGH 12/10/2019 JOCELYN BROWN MD Ot Z88. 2 ALLERGY STATUS TO SULFONAMIDES STATUS 12/10/2019 JOCELYN BROWN MD Ot Z88. 6 ALLERGY STATUS TO ANALGESIC AGENT STATUS 12/10/2019 JOCELYN BROWN MD Ot Z88. 8 ALLERGY STATUS TO OTH DRUG/MEDS/BIOL SUB 12/10/2019 JOCELYN BROWN MD Ot Z98. 84 BARIATRIC SURGERY STATUS 02/18/2020 JOCELYN BROWN MD Ot J44. 9 CHRONIC OBSTRUCTIVE PULMONARY DISEASE, U 02/18/2020 JOCELYN BROWN MD Ot J98. 01 ACUTE BRONCHOSPASM 02/18/2020 JOCELYN BROWN MD Ot K21. 9 GASTRO-ESOPHAGEAL REFLUX DISEASE WITHOUT 02/18/2020 JOCELYN BROWN MD Ot R05 COUGH 02/18/2020 JOCELYN BROWN MD Ot Z20.828 CONTACT W AND EXPOSURE TO OTH VIRAL COMM 02/18/2020 JOCELYN BROWN MD Ot Z88. 2 ALLERGY STATUS TO SULFONAMIDES STATUS 02/18/2020 JOCELYN BROWN MD Ot Z88. 6 ALLERGY STATUS TO ANALGESIC AGENT STATUS 02/18/2020 JOCELYN BROWN MD Ot Z88. 8 ALLERGY STATUS TO OTH DRUG/MEDS/BIOL SUB 02/18/2020 JOCELYN BROWN MD Ot Z98. 84 BARIATRIC SURGERY STATUS Procedures There is no data. Results Test Result Range - 11/22/18 09:08 GLUCOSE 109 mg/dL 65-99 UREA NITROGEN (BUN) 12 mg/dL 7-25 CREATININE 0.84 mg/dL 0.50-0.99 eGFR NON-AFR. SWAZI 73 mL/min/1.73m2 > OR = 60 eGFR [...] culture - 05/21/19 21:25 Bacterial urine culture [id number] NRG COLONY COUNT 20,000 CFU/ML NRG FTX;REPORTABLE [...] platelet poor plasma (mass/volume) 0.56 ug/mL 0.00-0.49 COVID-19 - 12/05/19 00:00 Coronavirus Ab [Units/volume] in Serum Not Detecte d NRG Complete blood count (CBC) with automate d [...] g/dL 3.2-4.5 CALCIUM CORRECTED 9.0 mg/dL 8.5-10.1 Fibrin D-dimer FEU measurement in platel et poor plasma (mass/volume) - 12/05/19 09:55 Fibrin D-dimer FEU measurement in platelet poor plasma (mass/volume) 0.86 ug/mL 0.00-0.49 Bacterial blood culture - 12/05/19 09:55 Bacterial blood culture NG NRG Influenza virus A and B antigen detectio [...] urinalysis with reflex to culture NO NRG LIPID PANEL - 01/13/20 10:19 CHOLESTEROL, TOTAL 190 mg/dL <200 HDL CHOLESTEROL 55 mg/dL > OR = 50 TRIGLYCERIDES 94 mg/dL <150 LDL-CHOLESTEROL 115 mg/dL (calc) NRG CHOL/HDLC RATIO 3.5 (calc) <5.0 NON HDL CHOLESTEROL 135 mg/dL (calc) <13 0 CMP - 01/13/20 10:19 GLUCOSE 100 mg/dL 65-99 UREA NITROGEN (BUN) 13 mg/dL 7-25 CREATININE 0.94 mg/dL 0.50-0.99 eGFR NON-AFR. SWAZI 63 mL/min/1.73m2 > OR = 60 eGFR 73 mL/min/1.73m2 > OR = 60 BUN/CREATININE RATIO NOT APPLICABLE (calc) 6-22 SODIUM 138 mmol/L 135-146 POTASSIUM 4.7 mmol/L 3.5-5.3 CHLORIDE 105 mmol/L 98-110 CARBON DIOXIDE 26 mmol/L 20-32 CALCIUM 9.2 mg/dL 8.6-10.4 PROTEIN, TOTAL 6.4 g/dL 6.1-8.1 ALBUMIN 3.9 g/dL 3.6-5.1 GLOBULIN 2.5 g/dL (calc) 1.9-3.7 ALBUMIN/GLOBULIN RATIO 1.6 (calc) 1.0-2. 5 BILIRUBIN, TOTAL 0.4 mg/dL 0.2-1.2 ALKALINE PHOSPHATASE 80 U/L 37-153 AST 20 U/L 10-35 ALT 16 U/L 6-29 CBC w/MANUAL DIFF - 01/13/20 10:19 WHITE BLOOD CELL COUNT 7.0 Thousand/uL 3 .8-10.8 RED BLOOD CELL COUNT 4.27 Million/uL 3.8 0-5.10 HEMOGLOBIN 10.3 g/dL 11.7-15.5 HEMATOCRIT 34.2 % 35.0-45.0 MCV 80.1 fL 80.0-100.0 MCH 24.1 pg 27.0-33.0 MCHC 30.1 g/dL 32.0-36.0 RDW 15.7 % 11.0-15.0 PLATELET COUNT 415 Thousand/uL 140-400 MPV 9.9 fL 7.5-12.5 ABSOLUTE NEUTROPHILS 4263 cells/uL 1500- 7800 ABSOLUTE MONOCYTES 336 cells/uL 200-950 ABSOLUTE EOSINOPHILS 336 cells/uL 15-500 ABSOLUTE BASOPHILS 0 cells/uL 0-200 NEUTROPHILS 60.9 % NRG LYMPHOCYTES 29.5 % NRG MONOCYTES 4.8 % NRG EOSINOPHILS 4.8 % NRG BASOPHILS 0 % NRG ABSOLUTE LYMPHOCYTES 2065 cells/uL 850-3 900 CBC MORPHOLOGY NORMAL COMMENT(S) NRG Encounters ACCT No. Visit Date/Time Discharge Status Pt. Type Provider Facility Loc./Unit Complaint [id number] 01/15/2020 08:40:00 01/15/2020 23:59: 59 CLS Outpatient [facility]CK MARTIN Colon [facility] [id number] 01/13/2020 09:00:00 Document Registration [id number] 05/27/2019 13:00:00 Document Registration [id number] 11/22/2018 08:40:00 Document Registration [id number] 12/05/2019 09:27:00 13:40:00 DIS Outpatient JOCELYN BROWN MD [facility] ER FS COUGH POSSIBLE PNEUMO LEXI POSSIBLE FEVER [id number] 06/26/2019 10:07:00 14:37:00 DIS Outpatient NATE BECERRA DO [facility] ER FS SOB; DIZZINESS; CHEST P RESSURE [id number] 05/21/2019 19:28:00 019 23:41:00 DIS Emergency PAULA DORAN MD [facility] ER FS VOMTITING [id number] 05/14/2018 09:58:00 018 12:05:00 DIS Outpatient THOMAS QUINTANILLA MD [facility] SDC CATARACT LEFT EYE [id number] 05/08/2018 05:40:00 13:51:00 DIS Outpatient THOMAS QUINTANILLA MD [facility] PREOP CATARACT LEFT EYE [id number] 04/26/2018 13:15:00 018 23:59:59 CLS Outpatient THOMAS QUINTANILLA MD [facility] SDC CATARACT RIGHT EYE [id number] 04/24/2018 05:33:00 Document Registration
== END 2020-02-26 11:52 | disposition home or self-care (01) ==
LOC: EDUNIT# 10:38 → ER FS 10:40
DX: S63.501A Unspecified sprain of right wrist, initial encounter (principal); K21.9 Gastro-esophageal reflux disease without esophagitis; Z88.2 Allergy status to sulfonamides; Z88.8 Allergy status to other drugs, medicaments and biological substances; Z88.6 Allergy status to analgesic agent; Z88.1 Allergy status to other antibiotic agents; W01.0XXA Fall on same level from slipping, tripping and stumbling without subsequent striking against object, initial encounter
CPT/HCPCS: 73090; 73110

== ENCOUNTER → 2020-06-22 | Outpatient (CLI) | payer MEDICARE, OTHER ==
[~2020-06-22] MED LIST changes: +DIATRIZOATE MEGLUM/SODIUM 37% 120 ML (GASTROGRAFIN) PO ONE; +HOLD METFORMIN - RECEIVED CONTRAST 20 ML VIAL IV SCH; +IOHEXOL 350 MG/ML 100 ML (OMNIPAQUE 350) VIAL IV ONE; +NS 100 ML (IVPB) BAG IV ONE
[2020-06-22] MEDS: CATHETER FLUSH 10 ML SYR IV PRN ×2 (09:37→09:39)
--- NOTE | 2020-06-22 10:43 | Diagnostic Imaging Report ---
PROCEDURE: CT abdomen with contrast only. TECHNIQUE: Multiple contiguous axial images were obtained through the abdomen after the administration of intravenous contrast. Auto Exposure Controls were utilized during the CT exam to meet ALARA standards for radiation dose reduction. INDICATION: Erosions of the intestine. COMPARISON: 05/21/2019 FINDINGS: Minimal scarring within the left lung base is again noted. Otherwise, the lung bases are clear. Postsurgical changes are identified at the GE junction and involving the stomach. The liver and spleen are unremarkable. The adrenal glands are unremarkable. The pancreas is unremarkable. The gallbladder is not visualized, likely surgically absent. The kidneys are unremarkable. No aneurysmal dilatation of the abdominal aorta. Mild scattered vascular calcifications. No bowel obstruction within the [id number]. A few loops of small bowel demonstrate mild mural thickening, particularly within the left abdomen. The celiac artery and superior mesenteric artery appear patent. No significant adenopathy, free air, or free fluid within the abdomen. Mild scattered osseous degenerative changes without acute osseous abnormality. IMPRESSION: Mild mural thickening within scattered loops of small bowel, particularly the left abdomen. This is felt to relate to probable poor distention, though enteritis would be an additional consideration. No bowel obstruction. Postsurgical changes of a gastric bypass. Dictated by: Dictated on workstation # [id number]
== END ==
LOC: RAD FS 08:27
PROVIDERS: ATTEND Family Medicine
DX: K63.3 Ulcer of intestine (principal); D64.9 Anemia, unspecified; Z98.84 Bariatric surgery status
CPT/HCPCS: 74160

== ENCOUNTER 2020-08-17 11:06 | Emergency (ER) | payer MEDICARE, OTHER ==
[~2020-08-17] VITALS: Ht 170.1 cm; Wt 73.9 kg
[~2020-08-17 11:06] MED LIST changes: -DIATRIZOATE MEGLUM/SODIUM 37% 120 ML (GASTROGRAFIN) PO ONE; -HOLD METFORMIN - RECEIVED CONTRAST 20 ML VIAL IV SCH; -IOHEXOL 350 MG/ML 100 ML (OMNIPAQUE 350) VIAL IV ONE; -NS 100 ML (IVPB) BAG IV ONE
[2020-08-17] MEDS ORDERED: NS IV 500 ML 500 ML IV ONE (11:31)
[2020-08-17 11:41] LABS: BASOPHILS # (AUTO) 0.1 10^3/uL (0.0-0.1); BASOPHILS % (AUTO) 1 % (0-10); EOSINOPHILS # (AUTO) 0.1 10^3/uL (0.0-0.3); EOSINOPHILS % (AUTO) 2 % (0-10); HEMATOCRIT 38 % (35-52); HEMOGLOBIN 11.9 g/dL (11.5-16.0); LYMPHOCYTES # (AUTO) 2.7 10^3/uL (1.0-4.0); LYMPHOCYTES % (AUTO) 32 % (12-44); MEAN CORPUSCULAR HEMOGLOBIN 26 pg (25-34); MEAN CORPUSCULAR HGB CONC 31 g/dL (32-36); MEAN CORPUSCULAR VOLUME 83 fL (80-99); MEAN PLATELET VOLUME 9.4 fL (9.0-12.2); MONOCYTES # (AUTO) 0.5 10^3/uL (0.0-1.0); MONOCYTES % (AUTO) 6 % (0-12); NEUTROPHILS # (AUTO) 4.9 10^3/uL (1.8-7.8); NEUTROPHILS % (AUTO) 59 % (42-75); PLATELET COUNT 394 10^3/uL (130-400); WHITE BLOOD COUNT 8.3 10^3/uL (4.3-11.0)
--- NOTE | 2020-08-17 11:41 | ED General ---
General Chief Complaint: General Problems/Pain Stated Complaint: WEAKNESS, GI BLEED, PALPATIONS Source of Information: Patient Exam Limitations: No Limitations History of Present Illness Date Seen by Provider: Aug 17, 2020 Time Seen by Provider: 11:25 Initial Comments Here with generalized weakness that has been going on for a few months but worse over the last several days. Has had work-up for GI bleed due to anemia and had endoscopy on the . That did not show any significant problems at that time. Patient is very concerned she is anemic. Denies fever or chills. Reports drinking okay but has lost her appetite. Reports palpitations. Denies contact with known COVID-19 Timing/Duration: Getting Worse, Other (Chronic for a couple months but worse over the last few days) Severity: Moderate Associated Systoms: No Chest Pain, No Fever/Chills, No Nausea/Vomiting; Shortness of Air, Weakness Allergies and Home Medications Allergies Coded Allergies: prednisone (Verified Allergy, Severe, BREATHING DIFF, 05/09/18) Sulfa (Sulfonamide Antibiotics) (Verified Allergy, Mild, RASH, 05/09/18) metoclopramide (Verified Allergy, Mild, RASH, 05/09/18) NSAIDS (Non-Steroidal Anti-Inflamma (Verified Allergy, Unknown, 05/21/19) atorvastatin (Verified Allergy, Unknown, rash, 06/26/19) nitrofurantoin (Verified Allergy, Unknown, rash, 06/26/19) Home Medications Azithromycin 250 Mg Tablet, 250 MG PO UD TAKE 2 TABLETS ON DAY ONE THEN TAKE 1 TABLET DAILY FOR FOUR MORE DAYS Prescribed by: JOCELYN BROWN on 12/05/19 1305 Magnesium Oxide 500 Mg Capsule, 1,500 MG PO HS, (Reported) Pantoprazole Sodium 40 Mg Tablet.dr, 40 MG PO DAILY, (Reported) Patient Home Medication List Home Medication List Reviewed: Yes Review of Systems Review of Systems Constitutional: see HPI; No chills, No fever EENTM: no symptoms reported; No nose congestion, No throat pain Respiratory: No cough; short of breath Cardiovascular: No chest pain; palpitations Gastrointestinal: No abdominal pain, No nausea, No vomiting Genitourinary: no symptoms reported Musculoskeletal: No muscle pain; muscle weakness Skin: no symptoms reported All Other Systems Reviewed Negative Unless Noted: Yes Past Rrpifvd-Rgvhmp-Iqlpec Hx Past Med/Social Hx: Reviewed Nursing Past Med/Soc Hx Patient Social History Alcohol Use: Denies Use Recreational Drug Use: No Smoking Status: Never a Smoker 2nd Hand Smoke Exposure: No Recent Foreign Travel: No Contact w/Someone Who Travel: No Recent Hopitalizations: No Seasonal Allergies Seasonal Allergies: No Past Medical History Surgeries: Yes (GASTRIC BYPASS, ) Abdominal Respiratory: No Asthma, Pneumonia, COPD Cardiac: No Neurological: No Genitourinary: No Gastrointestinal: Yes Gastroesophageal Reflux, Ulcer, Irritable Bowel Musculoskeletal: No Endocrine: No HEENT: No Cancer: No Psychosocial: Yes Anxiety Integumentary: No Blood Disorders: No Family Medical History Reviewed Nursing Family Hx Physical Exam Vital Signs Vital Signs - First Documented 08/17/20 11:15 Temp 36.5 Pulse 83 Resp 19 B/P (MAP) 164/82 (109) Pulse Ox 95 O2 Delivery Room Air Capillary Refill : Height, Weight, BMI Height: 5'7.00" Weight: 163lbs. 0.0oz. 73.467477rm; 25.00 BMI Method:Actual General Appearance: WD/WN, Mild Distress (Anxious) HEENT: PERRL/EOMI, Pharynx Normal Neck: Non Tender, Supple Respiratory: Lungs Clear, Normal Breath Sounds Cardiovascular: No Murmur, Tachycardia Gastrointestinal: Non Tender, Soft Back: Normal Inspection, No CVA Tenderness, No Vertebral Tenderness Extremity: Normal Range of Motion, Non Tender Neurologic/Psychiatric: Alert, Oriented x3 Skin: Normal Color, Warm/Dry Progress/Results/Core Measures Suspected Sepsis SIRS Temperature: Pulse: Respiratory Rate: Laboratory Tests 08/17/20 11:25: White Blood Count 8.3 Blood Pressure / Mean: Laboratory Tests 08/17/20 11:25: Creatinine 0.92, Platelet Count 394, Total Bilirubin 0.3 Results/Orders Lab Results Laboratory Tests Test 08/17/20 11:25 08/17/20 11:48 Range/Units White Blood Count 8.3 4.3-11.0 10^3/uL Red Blood Count 4.64 3.80-5.11 10^6/uL Hemoglobin 11.9 11.5-16.0 g/dL Hematocrit 38 35-52 % Mean Corpuscular Volume 83 80-99 fL Mean Corpuscular Hemoglobin 26 25-34 pg Mean Corpuscular Hemoglobin Concent 31 L 32-36 g/dL Red Cell Distribution Width 18.2 H 10.0-14.5 % Platelet Count 394 130-400 10^3/uL Mean Platelet Volume 9.4 9.0-12.2 fL Immature Granulocyte % (Auto) 1 % Neutrophils (%) (Auto) 59 42-75 % Lymphocytes (%) (Auto) 32 12-44 % Monocytes (%) (Auto) 6 0-12 % Eosinophils (%) (Auto) 2 0-10 % Basophils (%) (Auto) 1 0-10 % Neutrophils # (Auto) 4.9 1.8-7.8 10^3/uL Lymphocytes # (Auto) 2.7 1.0-4.0 10^3/uL Monocytes # (Auto) 0.5 0.0-1.0 10^3/uL Eosinophils # (Auto) 0.1 0.0-0.3 10^3/uL Basophils # (Auto) 0.1 0.0-0.1 10^3/uL Immature Granulocyte # (Auto) 0.0 0.0-0.1 10^3/uL D-Dimer 0.28 0.00-0.49 UG/ML Sodium Level 138 135-145 MMOL/L Potassium Level 4.2 3.6-5.0 MMOL/L Chloride Level 103 98-107 MMOL/L Carbon Dioxide Level 28 21-32 MMOL/L Anion Gap 7 5-14 MMOL/L Blood Urea Nitrogen 14 7-18 MG/DL Creatinine 0.92 0.60-1.30 MG/DL Estimat Glomerular Filtration Rate > 60 BUN/Creatinine Ratio 15 Glucose Level 107 H 70-105 MG/DL Calcium Level 8.9 8.5-10.1 MG/DL Corrected Calcium 8.9 8.5-10.1 MG/DL Magnesium Level 2.4 1.6-2.4 MG/DL Total Bilirubin 0.3 0.1-1.0 MG/DL Aspartate Amino Transf (AST/SGOT) 25 5-34 U/L Alanine Aminotransferase (ALT/SGPT) 22 0-55 U/L Alkaline Phosphatase 95 40-136 U/L Troponin I < 0.028 <0.028 NG/ML C-Reactive Protein High Sensitivity 0.18 0.00-0.50 MG/DL Total Protein 7.3 6.4-8.2 GM/DL Albumin 4.0 3.2-4.5 GM/DL TSH [employer] Testing 2.68 0.35-4.94 UIU/ML Urine Color YELLOW Urine Clarity CLEAR Urine pH 7.0 5-9 Urine Specific Bath 1.010 L 1.016-1.022 Urine Protein NEGATIVE NEGATIVE Urine Glucose (UA) NEGATIVE NEGATIVE Urine Ketones NEGATIVE NEGATIVE Urine Nitrite NEGATIVE NEGATIVE Urine Bilirubin NEGATIVE NEGATIVE Urine Urobilinogen 0.2 < = 1.0 MG/DL Urine Leukocyte Esterase 3+ H NEGATIVE Urine RBC (Auto) NEGATIVE NEGATIVE Urine RBC NONE /HPF Urine WBC 10-25 H /HPF Urine Squamous Epithelial Cells 5-10 /HPF Urine Crystals NONE /LPF Urine Bacteria FEW H /HPF Urine Casts NONE /LPF Urine Mucus NEGATIVE /LPF Urine Culture Indicated YES My Orders Orders - VALE MOSLEY MD Cbc With Automated Diff (08/17/20 11:31) Comprehensive Metabolic Panel (08/17/20 11:31) Hs C Reactive Protein (08/17/20 11:31) Fibrin Degradation Products (08/17/20 11:31) Magnesium (08/17/20 11:31) Thyroid Analyzer (08/17/20 11:31) Troponin I (08/17/20 11:31) Ua Culture If Indicated (08/17/20 11:31) Type And Screen (08/17/20 11:31) Chest 1 View, Ap/Pa Only (08/17/20 11:31) Ekg Tracing (08/17/20 11:31) Monitor-Rhythm Ecg Trace Only (08/17/20 11:31) Ed Iv/Invasive Line Start (08/17/20 11:31) Ns Iv 500 Ml (Sodium Chloride 0.9%) (08/17/20 11:31) Ondansetron Injection (Zofran Injectio (08/17/20 12:00) Urine Culture (08/17/20 11:48) Lidocaine 2% Viscous 15 Ml (Xylocaine Vi (08/17/20 12:30) Antacid Suspension (Mylanta Suspension (08/17/20 12:30) Dicyclomine Capsule (Bentyl Capsule) (08/17/20 12:16) Ceftriaxone For Iv Use (Rocephin For I (08/17/20 12:28) Medications Given in ED Current Medications Medications Dose Ordered Sig/Eloy Route Start Time Stop Time Status Last Admin Dose Admin Al Hydrox/Mg Hydrox/Simethicone 30 ml ONCE ONCE PO 08/17/20 12:30 08/17/20 12:31 DC 08/17/20 12:33 30 ML Lidocaine HCl 15 ml ONCE ONCE PO 08/17/20 12:30 08/17/20 12:31 DC 08/17/20 12:33 15 ML Ondansetron HCl 4 mg ONCE ONCE IVP 08/17/20 12:00 08/17/20 12:01 DC 08/17/20 11:56 4 MG Sodium Chloride 500 ml @ 0 mls/hr Q0M ONCE IV 08/17/20 11:31 08/17/20 11:34 DC 08/17/20 11:57 500 MLS/HR Vital Signs/I&O 08/17/20 11:15 Temp 36.5 Pulse 83 Resp 19 B/P (MAP) 164/82 (109) Pulse Ox 95 O2 Delivery Room Air Capillary Refill : Progress Note : Progress Note Seen and evaluated. IV, labs, EKG and chest x-ray ordered. Normal saline 500 mL bolus. UA ordered. Monitor patient. 1230: UTI noted. Patient having some nausea. She was given Zofran 4 mg IV earlier but it persisted. She states Bentyl usually works. GI cocktail and Bentyl given. Hemoglobin and blood counts overall noted to be normal. Overall chemistries and chest x-ray are normal. No indication for admission and no indication for significant abnor mality. 1241: Feeling a little better. Discharged home with return precautions. Patient verbalized understanding of instructions and agreement with plan. ECG Initial ECG Impression Date: Aug 17, 2020 Initial ECG Impression Time: 11:34 Initial ECG Rhythm: Normal Sinus Initial ECG Comparisson: Unchanged (06/26/19) Comment Sinus rhythm with left word axis. No evidence of ST elevation RI. Interpreted by me. Diagnostic Imaging Diagonstic Imaging: Xray Plain Films/CT/US/NM/MRI: chest Comments [facility]. [place], [place] NAME: RAMIN WASHINGTON [facility] REC#: [id number] PT STATUS: REG ER : 1955 PHYSICIAN: VALE MOSLEY MD ADMIT DATE: 08/17/20/ER Draft Date of Exam:08/17/20 CHEST 1 VIEW, AP/PA ONLY INDICATION: Palpitations and nausea for one week. Time of exam 11:59 a.m. Correlation is made with prior chest from 12/05/2019. The heart size is normal. The pulmonary vascularity is unremarkable. The lungs are clear. No infiltrate, effusion or pneumothorax is detected. IMPRESSION: No acute cardiopulmonary process is detected. Dictated on workstation # [id number] Dict: 08/17/20 1204 Trans: 08/17/20 1205 [facility] [id number] Interpreted by: YORDAN PERZE MD Electronically signed by: Departure Impression Primary Impression: Urinary tract infection Qualified Codes: N30.00 - Acute cystitis without hematuria Disposition: HOME, SELF-CARE Condition: Improved Departure-Patient Inst. Decision time for Depature: 12:42 Referrals: VIRGILIO ALONZO MD (PCP/Family) Primary Care Physician Patient Instructions: Urinary Tract Infection, Adult (DC) Add. Discharge Instructions: All discharge instructions reviewed with patient and/or family. Voiced understanding. Take medications as directed. Continue home medications as previously prescribed. Follow-up with your doctor in a few days for recheck. Return for worse pain, fever, vomiting, weakness, breathing problems or other concerns as needed. Scripts Cephalexin (Cephalexin) 500 Mg Capsule 500 MG PO BID for 5 Days, #10 CAP 0 Refills Prov: VALE MOSLEY MD 08/17/20 Copy Copies To 1: DANIEL BOYKIN TIMOTHY D MD Aug 17, 2020 11:41
[2020-08-17 11:53] LABS: BILIRUBIN,URINE NEGATIVE (NEGATIVE); CLARITY,URINE CLEAR; COLOR,URINE YELLOW; GLUCOSE, URINE (UA) NEGATIVE (NEGATIVE); KETONES,URINE NEGATIVE (NEGATIVE); LEUKOCYTE ESTERASE ,URINE 3+ (NEGATIVE); NITRITE,URINE NEGATIVE (NEGATIVE); PROTEIN,URINE NEGATIVE (NEGATIVE)
[2020-08-17 11:54] LABS: CHLORIDE 103 MMOL/L (98-107); POTASSIUM 4.2 MMOL/L (3.6-5.0); SODIUM 138 MMOL/L (135-145)
[2020-08-17 11:56] LABS: CALCIUM 8.9 MG/DL (8.5-10.1)
[2020-08-17 11:57] LABS: GLUCOSE 107 MG/DL (70-105); TOTAL PROTEIN 7.3 GM/DL (6.4-8.2)
[2020-08-17 11:58] LABS: CARBON DIOXIDE 28 MMOL/L (21-32)
[2020-08-17 11:59] LABS: BILIRUBIN,TOTAL 0.3 MG/DL (0.1-1.0)
[2020-08-17 12:00] LABS: BACTERIA,URINE FEW /HPF
[2020-08-17 12:00] LABS: ALKALINE PHOSPHATASE 95 U/L (40-136)
[2020-08-17] MEDS ORDERED: ONDANSETRON 4 MG/2 ML (SDV) Z0FRAN IVP ONE (12:00)
[2020-08-17 12:01] LABS: CREATININE SERUM 0.92 MG/DL (0.60-1.30); GFR ESTIMATED > 60
[2020-08-17 12:02] LABS: BUN/CREATININE RATIO 15
[2020-08-17 12:03] LABS: ALANINE AMINOTRANSFERASE 22 U/L (0-55); MAGNESIUM 2.4 MG/DL (1.6-2.4)
--- NOTE | 2020-08-17 12:05 | Diagnostic Imaging Report ---
INDICATION: Palpitations and nausea for one week. Time of exam 11:59 a.m. Correlation is made with prior chest from 12/05/2019. The heart size is normal. The pulmonary vascularity is unremarkable. The lungs are clear. No infiltrate, effusion or pneumothorax is detected. IMPRESSION: No acute cardiopulmonary process is detected. Dictated by: Dictated on workstation # [id number]
[2020-08-17] MEDS ORDERED: DICYCLOMINE 10 MG (BENTYL) CAP PO STA (12:16)
[2020-08-17 12:24] LABS: TSH (THYROID ANALYZER) 2.68 UIU/ML (0.35-4.94)
[2020-08-17] MEDS ORDERED: cefTRIAXone FOR IV USE 1,000 MG in WATER (STERILE) FOR INJECTION 10 ML IV STA (12:28)
[2020-08-17] MEDS ORDERED: ANTACID SUSP 30 ML UDC (MYLANTA) PO ONE (12:30)
[2020-08-17] MEDS ORDERED: LIDOCAINE 2% VISCOUS 15 ML UDC PO ONE (12:30)
[2020-08-17] MEDS ORDERED: CEPH500C PO (12:44)
[2020-08-17 12:50] VITALS: BP 131/73
== END 2020-08-17 12:52 | disposition home or self-care (01) ==
LOC: EDUNIT# 11:06 → ER 11:07
DX: N39.0 Urinary tract infection, site not specified (principal); F41.9 Anxiety disorder, unspecified; K21.9 Gastro-esophageal reflux disease without esophagitis; Z88.2 Allergy status to sulfonamides; Z88.6 Allergy status to analgesic agent; Z88.8 Allergy status to other drugs, medicaments and biological substances
CPT/HCPCS: 36415; 71045; 80053; 81000; 83735; 84443; 84484; 85025; 85379; 86141; 86850; 86900; 86901; 87088; 93005; 93041

== ENCOUNTER → 2021-12-21 | Outpatient (CLI) | payer MEDICARE, OTHER ==
[~2021-12-21] MED LIST changes: +CATHETER FLUSH 10 ML SYR IV PRN; +CEPH500C PO; +HOLD METFORMIN - RECEIVED CONTRAST 20 ML VIAL IV SCH; +IOHEXOL 350 MG/ML 100 ML (OMNIPAQUE 350) VIAL IV ONE; +NS 100 ML (IVPB) BAG IV ONE
--- NOTE | 2021-12-21 10:40 | Diagnostic Imaging Report ---
PROCEDURE: CT angiography of the chest with contrast. TECHNIQUE: Multiple contiguous axial images were obtained through the chest after uneventful bolus administration of intravenous contrast. 3D reconstructed CTA MIP acquisitions were also performed. Auto Exposure Controls were utilized during the CT exam to meet ALARA standards for radiation dose reduction. INDICATION: Elevated d-dimer. COMPARISON: 12/05/2019. FINDINGS: There is good opacification of the pulmonary arteries without intraluminal filling defect. The thoracic aorta is of normal caliber. There has been significant improvement in aeration of the lungs. Numerous subpleural nodules are seen in both lungs measuring up to 0.3 cm in size. These were likely present on the previous study but where at least partially obscured due to atelectasis and probable mild edema or pneumonitis. There is no dominant mass. No significant pleural or pericardial fluid is identified. There is no evidence of pathologically enlarged adenopathy. IMPRESSION: No CTA evidence of great vessel abnormality in the thorax. There are numerous small subpleural nodules in both lungs, likely stable when compared to previous study. These may be on the basis of granulomatous residua or other prior inflammation. Followup should be based on risk factor and Fleischner Society criteria. Dictated by: Dictated on workstation # [id number]
== END ==
LOC: RAD FS 09:32
PROVIDERS: ATTEND Family Medicine
DX: R79.89 Other specified abnormal findings of blood chemistry (principal); R91.8 Other nonspecific abnormal finding of lung field
CPT/HCPCS: 71275; Q9967

== ENCOUNTER → 2022-11-02 | Outpatient (CLI) | payer MEDICARE, OTHER ==
[~2022-11-02] MED LIST changes: -CATHETER FLUSH 10 ML SYR IV PRN; -HOLD METFORMIN - RECEIVED CONTRAST 20 ML VIAL IV SCH; -IOHEXOL 350 MG/ML 100 ML (OMNIPAQUE 350) VIAL IV ONE; -NS 100 ML (IVPB) BAG IV ONE
--- NOTE | 2022-11-02 12:42 | Diagnostic Imaging Report ---
PROCEDURE: CT abdomen and pelvis without contrast. TECHNIQUE: Multiple contiguous axial images were obtained through the abdomen and pelvis without the use of intravenous contrast. Auto Exposure Controls were utilized during the CT exam to meet ALARA standards for radiation dose reduction. INDICATION: Patient has change in bowel habits with history of constipation Compared with abdominal CT 06/22/2020. There is postsurgical changes of a gastric bypass without evidence for its complication. No findings of proximal or distal anastomotic breakdown or obstruction. No bowel dilatation. The colonic fecal load is not abnormally elevated. There is no small or large bowel wall thickening. No pericolonic or perienteric edema. No ascites, abscess, hematoma or acute fluid collection. The unobstructed kidneys unremarkable. The atherosclerotic aorta nonaneurysmal. Gallbladder absent or contracted. No bile duct dilatation. No radiopaque biliary calculi. Spleen, adrenals and pancreas negative. There is no lymphadenopathy. No acute abdominal wall defect. The lung bases and the bony structures nonacute. IMPRESSION: Postsurgical changes with no obstructive features, stone disease, inflammatory processes or acute appearing abnormalities. No abnormal fecal loading or findings of a postsurgical complication. Dictated by: Dictated on workstation # [id number]
== END ==
LOC: RAD FS 09:45
PROVIDERS: ATTEND Family Medicine
DX: R10.84 Generalized abdominal pain (principal); R93.89 Abnormal findings on diagnostic imaging of other specified body structures; R19.4 Change in bowel habit; Z98.890 Other specified postprocedural states; Z87.19 Personal history of other diseases of the digestive system
CPT/HCPCS: 74176